=== PATIENT | female | born 1975 | race Two or more races ===

== ENCOUNTER 2020-02-26 11:55 | Emergency (ER) | payer OTHER, MEDICAID ==
[~2020-02-26] VITALS: Ht 160 cm; Wt 54.4 kg
[2020-02-26] MEDS ORDERED: SODIUM CHLORIDE 0.9% 1,000 ML IV ONE (12:45)
[2020-02-26 17:47] LABS: Basophils # (auto) 0.1 10 ^3/uL (0-0.2); Eosinophils # (auto) 0 10 ^3/uL (0-0.8); Lymphocytes # (auto) 1.6 10 ^3/uL (0.4-5.4); Lymphocytes % (auto) 8.1 % (10.0-50.0); Neutrophils # (auto) 17.2 10 ^3/uL (1.6-8.6); Nucleated Red Blood Cells % 0.1 %; Red Blood Cells 4.12 10^6/uL (4.0-5.20)
[2020-02-26 17:49] LABS: Basophils % (auto) 0.5 % (0.0-2.0); Hematocrit 38.6 % (36.0-46.0); Hemoglobin 13.6 g/dL (12.2-16.2); Mean Corpuscular Hgb Conc. 35.2 g/dL (32.0-36.0); Mean Corpuscular Volume 93.5 fL (80.0-100.0); Monocytes # (auto) 1.3 10 ^3/uL (0-1.3); Monocytes % (auto) 6.4 % (0.0-12.0); Red Cell Distribution Width 14.2 % (11.8-14.3); White Blood Cell 20.2 10^3/uL (4.4-10.8)
[2020-02-26 17:56] LABS: Alanine Aminotransferase 46 U/L (13-56); Albumin 3.8 g/dL (3.4-5.0); Anion Gap 17 (5-15); Aspartate Aminotransferase 21 U/L (15-37); BUN/Creatinine Ratio 23.5; Blood Urea Nitrogen 46 mg/dL (7-18); Carbon Dioxide 21 mmol/L (21-32); Chloride 87 mmol/L (98-107); GFR African American 36 mL/min; GFR Non-African American 30 mL/min; Glucose 255 mg/dL (74-106); Potassium 4.5 mmol/L (3.5-5.1); Sodium 125 mmol/L (136-145)
[2020-02-26 18:00] LABS: Alkaline Phosphatase 245 U/L (45-117); Bilirubin, Total 0.4 mg/dL (0.2-1.0); Total Protein 8.1 g/dL (6.4-8.2)
[2020-02-26] MEDS ORDERED: InsuLIN R (HUMAN) 100 UNITS in SODIUM CHL 0.9% 99 ML IV SCH (20:30)
[2020-02-26] MEDS: D5W/SOD CHL 0.45%/KCL 20MEQ 1,000 ML IV SCH (20:30)
[2020-02-26] MEDS: SODIUM CHLORIDE 0.9% 1,000 ML IV SCH ×2 (20:30→22:30)
[2020-02-26] MEDS ORDERED: INSULIN LANTUS (GLARGINE) 1 /0.01ml (100units/ml) SC ONE (20:30)
[2020-02-26] MEDS ORDERED: DEXTROSE (50%) 50ML SYRG IV PRN (20:30)
[2020-02-26] MEDS: ACCU-CHEK COMFORT CURVE STRIP VI SCH (21:00)
[2020-02-26] MEDS ORDERED: InsuLIN REG 1unit/0.01ml Soln (100units/ml) IV ONE (22:15)
[2020-02-26 22:20] LABS: BUN/Creatinine Ratio 29.1; Calcium 7.8 mg/dL (8.5-10.1); Potassium 3.9 mmol/L (3.5-5.1)
[2020-02-27] MEDS: ACCU-CHEK COMFORT CURVE STRIP VI SCH ×3 (02:00→04:26)
[2020-02-27] MEDS: D5W/SOD CHL 0.45%/KCL 20MEQ 1,000 ML IV SCH (02:23)
[2020-02-27 02:57] LABS: Urine Bacteria NONE SEEN /hpf (None Seen); Urine Blood Negative /uL (Negative); Urine Hyaline Cast MOD /lpf (0 - 2); Urine Mucus FEW (None Seen); Urine Specific Gravity 1.016 (1.001-1.035); Urine WBC 4 /hpf (0 - 5)
[2020-02-27 03:36] LABS: Calcium 7.8 mg/dL (8.5-10.1); Potassium 3.7 mmol/L (3.5-5.1)
[2020-02-27 03:38] LABS: BUN/Creatinine Ratio 32.2
[2020-02-27 04:00] VITALS: BP 122/75
[2020-12-22] MEDS ORDERED: NIC21P TOP (09:59)
[2020-12-22] MEDS ORDERED: INSLANTI SC (09:59)
== END 2020-02-27 06:15 | disposition home or self-care (01) ==
LOC: ER 11:55 → EDBD 11:55 → ER 02-27 06:15
DX: E11.10 Type 2 diabetes mellitus with ketoacidosis without coma (principal); D72.829 Elevated white blood cell count, unspecified; F17.210 Nicotine dependence, cigarettes, uncomplicated; N39.0 Urinary tract infection, site not specified; R07.9 Chest pain, unspecified; Z20.828 Contact with and (suspected) exposure to other viral communicable diseases
CPT/HCPCS: 36415; 71045; 80048; 80053; 81001; 82010; 82962; 83735; 84484; 85025; 87426; 93005; 96361; 96374; 99285; J1815; J7030; J7060

== ENCOUNTER 2020-07-14 11:43 | Inpatient (IN) | payer MEDICAID, OTHER ==
[~2020-07-14] VITALS: Ht 162.6 cm; Wt 51.1 kg
[2020-07-14 12:28] LABS: Urine Bacteria FEW /hpf (None Seen); Urine Blood TRACE /uL (Negative); Urine Budding Yeast OCCASIONAL /hpf (None Seen); Urine Mucus FEW (None Seen); Urine Specific Gravity 1.015 (1.001-1.035); Urine WBC 1 /hpf (0 - 5)
[2020-07-14 12:57] LABS: Albumin 3.6 g/dL (3.4-5.0); Anion Gap 20 (5-15); Blood Urea Nitrogen 31 mg/dL (7-18); Calcium 7.9 mg/dL (8.5-10.1); Chloride 104 mmol/L (98-107); Potassium 4.9 mmol/L (3.5-5.1); Sodium 133 mmol/L (136-145)
[2020-07-14 13:03] LABS: Alanine Aminotransferase 28 U/L (13-56); Alkaline Phosphatase 221 U/L (45-117); Aspartate Aminotransferase 19 U/L (15-37); BUN/Creatinine Ratio 23.8; Bilirubin, Total 0.3 mg/dL (0.2-1.0); GFR African American 57 mL/min; GFR Non-African American 47 mL/min; Total Protein 7.9 g/dL (6.4-8.2)
[2020-07-14 13:09] LABS: Carbon Dioxide 9 mmol/L (21-32); Glucose 471 mg/dL (74-106)
[2020-07-14] MEDS ORDERED: DEXTROSE (50%) 50ML SYRG IV PRN (13:45)
[2020-07-14] MEDS ORDERED: SODIUM CHLORIDE 0.9% 1,000 ML IVB ONE (13:45)
[2020-07-14] MEDS ORDERED: SODIUM BICARBONATE 8.4 % INJ 50ML VIAL IV ONE ×2 (13:45→14:30)
[2020-07-14] MEDS ORDERED: PROMETHAZINE HCL 25 MG/ML 1ML ONE (14:34)
[2020-07-14] MEDS ORDERED: PROMETHAZINE HCL 25 MG/ML 1ML IV ONE (14:45)
[2020-07-14] MEDS: InsuLIN R (HUMAN) 100 UNITS in SODIUM CHL 0.9% 99 ML IV SCH (15:00)
[2020-07-14] MEDS: ACCU-CHEK COMFORT CURVE STRIP VI SCH ×6 (15:06→22:32)
[2020-07-14] MEDS: SODIUM CHLORIDE 0.9% 1,000 ML IV SCH ×2 (15:15→15:45)
[2020-07-14 17:00] LABS: Basophils # (auto) 0 10 ^3/uL (0-0.2); Basophils % (auto) 0.2 % (0.0-2.0); Eosinophils # (auto) 0 10 ^3/uL (0-0.8); Hematocrit 35.5 % (36.0-46.0); Hemoglobin 11.9 g/dL (12.2-16.2); Lymphocytes # (auto) 1.2 10 ^3/uL (0.4-5.4); Lymphocytes % (auto) 5.8 % (10.0-50.0); Mean Corpuscular Hemoglobin 30.4 pg (28.0-32.0); Mean Corpuscular Hgb Conc. 33.5 g/dL (32.0-36.0); Mean Corpuscular Volume 90.6 fL (80.0-100.0); Monocytes # (auto) 0.6 10 ^3/uL (0-1.3); Monocytes % (auto) 2.8 % (0.0-12.0); Neutrophils # (auto) 18.7 10 ^3/uL (1.6-8.6); Neutrophils % (auto) 91.2 % (37.0-80.0); Platelet Count (auto) 430 10^3/uL (140-450); Red Blood Cells 3.91 10^6/uL (4.0-5.20); Red Cell Distribution Width 14.9 % (11.8-14.3); White Blood Cell 20.5 10^3/uL (4.4-10.8)
[2020-07-14] MEDS ORDERED: ONDANSETRON HCL 4 MG/2 ML VIAL IV PRN (17:00)
[2020-07-14] MEDS ORDERED: MORPHINE SULF INJ 2 MG/ML SYRINGE 1ML IV PRN (17:00)
[2020-07-14] MEDS ORDERED: NITROGLYCERIN 0.4 MG SL TAB SL PRN (17:00)
[2020-07-14] MEDS: LACTATED RINGER'S 1,000 ML IV SCH ×2 (17:05→23:40)
[2020-07-14 17:15] LABS: INR 0.98 (0.9-1.15); Partial Thromboplastin Time 23.4 sec (23.0-31.2)
[2020-07-14] MEDS ORDERED: SODIUM CHLORIDE 0.9% 1,000 ML IV SCH ×2 (17:45→19:45)
[2020-07-14] MEDS: INSULIN LANTUS (GLARGINE) 1 /0.01ml (100units/ml) SC SCH (18:13)
[2020-07-14 21:48] LABS: BUN/Creatinine Ratio 26.3; Potassium 3.6 mmol/L (3.5-5.1)
[2020-07-14] MEDS ORDERED: D5W/SOD CHL 0.45% 1,000 ML IV ONE (22:15)
[2020-07-15] MEDS: ACCU-CHEK COMFORT CURVE STRIP VI SCH ×11 (00:12→21:54)
[2020-07-15] MEDS: LACTATED RINGER'S 1,000 ML IV SCH ×2 (06:20→13:18)
[2020-07-15 06:55] LABS: Hematocrit 40.1 % (36.0-46.0); Hemoglobin 13.7 g/dL (12.2-16.2); Mean Corpuscular Hgb Conc. 34.2 g/dL (32.0-36.0); Mean Corpuscular Volume 90.6 fL (80.0-100.0); Red Blood Cells 4.43 10^6/uL (4.0-5.20); Red Cell Distribution Width 15.2 % (11.8-14.3); White Blood Cell 26.5 10^3/uL (4.4-10.8)
[2020-07-15 07:05] LABS: BUN/Creatinine Ratio 20.5; Calcium 8.7 mg/dL (8.5-10.1); Magnesium 2.1 mg/dL (1.6-2.6); Potassium 3.5 mmol/L (3.5-5.1)
[2020-07-15 07:10] LABS: Basophils % (manual) 0 (0.0-2.0); Blast Cells 0; Eosinophils % (manual) 0 (0-7); Metamyelocytes % 0; Myelocytes % 0; Promyelocytes % 0; Reactive Lymphocytes 0
[2020-07-15 07:56] LABS: Band Neutrophils % (manual) 3; Lymphocytes % (manual) 7 (10.0-50.0); Monocytes % (manual) 4 (0-12)
[2020-07-15 07:57] LABS: Platelet Count (auto) 433 10^3/uL (140-450)
[2020-07-15] MEDS: InsuLIN R (HUMAN) 100 UNITS in SODIUM CHL 0.9% 99 ML IV SCH (10:55)
[2020-07-15] MEDS ORDERED: PROMETHAZINE HCL 25 MG/ML 1ML IV ONE (13:15)
[2020-07-15] MEDS: INSULIN LANTUS (GLARGINE) 1 /0.01ml (100units/ml) SC SCH (13:17)
[2020-07-15] MEDS ORDERED: cefTRIAXone 1GM/50ML D5W 50 ML IV ONE (13:30)
[2020-07-15] MEDS ORDERED: DEXTROSE (50%) 50ML SYRG IV PRN (13:45)
[2020-07-15] MEDS: InsuLIN REG 1unit/0.01ml Soln (100units/ml) SC SCH ×2 (17:58→21:54)
[2020-07-15 22:00] VITALS: BP 138/85
[2020-07-15 22:34] VITALS: BP 138/85
[2020-07-15] MEDS ORDERED: DIAZ10TA3 PO (23:31)
[2020-07-15] MEDS ORDERED: INSR100KIT IV (23:31)
[2020-07-15] MEDS ORDERED: INSLANTI SC (23:31)
[2020-07-16] VITALS (7 sets, daily range): BP systolic 143–165; BP diastolic 81–96
[2020-07-16] MEDS: PROMETHAZINE HCL 25 MG/ML 1ML IV PRN ×3 (02:01→18:40)
[2020-07-16] MEDS: LACTATED RINGER'S 1,000 ML IV SCH ×4 (02:15→23:20)
[2020-07-16] MEDS: ACCU-CHEK COMFORT CURVE STRIP VI SCH ×4 (06:35→22:11)
[2020-07-16] MEDS: InsuLIN REG 1unit/0.01ml Soln (100units/ml) SC SCH ×4 (06:37→22:00)
[2020-07-16 08:15] LABS: Basophils # (auto) 0.1 10 ^3/uL (0-0.2); Basophils % (auto) 0.6 % (0.0-2.0); Eosinophils # (auto) 0 10 ^3/uL (0-0.8); Eosinophils % (auto) 0.1 % (0.0-7.0); Hematocrit 34.4 % (36.0-46.0); Hemoglobin 12.1 g/dL (12.2-16.2); Lymphocytes # (auto) 1.8 10 ^3/uL (0.4-5.4); Lymphocytes % (auto) 15.4 % (10.0-50.0); Mean Corpuscular Hemoglobin 31.2 pg (28.0-32.0); Mean Corpuscular Hgb Conc. 35.2 g/dL (32.0-36.0); Mean Corpuscular Volume 88.7 fL (80.0-100.0); Monocytes # (auto) 0.7 10 ^3/uL (0-1.3); Monocytes % (auto) 5.8 % (0.0-12.0); Neutrophils % (auto) 78.1 % (37.0-80.0); Platelet Count (auto) 358 10^3/uL (140-450); Red Blood Cells 3.88 10^6/uL (4.0-5.20); Red Cell Distribution Width 15.4 % (11.8-14.3); White Blood Cell 11.5 10^3/uL (4.4-10.8)
[2020-07-16 08:26] LABS: BUN/Creatinine Ratio 18.4; Calcium 8.3 mg/dL (8.5-10.1)
[2020-07-16 08:34] LABS: Potassium 2.8 mmol/L (3.5-5.1)
[2020-07-16] MEDS ORDERED: POTASSIUM CHL 20 Meq TABLET PO ONE (09:00)
[2020-07-16] MEDS: cefTRIAXone 1GM/50ML D5W 50 ML IV SCH (09:25)
[2020-07-16] MEDS: INSULIN LANTUS (GLARGINE) 1 /0.01ml (100units/ml) SC SCH (11:17)
[2020-07-16 16:54] LABS: Alcohol, Urine < 3.0 mg/dL (0-10); Amphetamine Screen, Urine NEGATIVE (NEGATIVE); Barbiturate Scree,Urine NEGATIVE (NEGATIVE); Benzodiazephine Screen, Urine NEGATIVE (NEGATIVE); Cannabinoid Screen, Urine NEGATIVE (NEGATIVE); Cocaine Screen, Urine NEGATIVE (NEGATIVE); Opiate Scree,Urine NEGATIVE (NEGATIVE); Phencyclidine Screen, Urine NEGATIVE (NEGATIVE)
[2020-07-16] MEDS: POTASSIUM EFFERVESENT TAB 25 MEQ GT SCH (22:11)
[2020-07-17] MEDS: MORPHINE SULF INJ 2 MG/ML SYRINGE 1ML IV PRN ×2 (03:53→12:37)
[2020-07-17 05:08] VITALS: BP 161/95
[2020-07-17] MEDS: LACTATED RINGER'S 1,000 ML IV SCH ×2 (05:15→11:40)
[2020-07-17] MEDS: PROMETHAZINE HCL 25 MG/ML 1ML IV PRN ×2 (05:32→12:37)
[2020-07-17] MEDS: ACCU-CHEK COMFORT CURVE STRIP VI SCH ×3 (06:41→16:59)
[2020-07-17 06:42] LABS: Basophils # (auto) 0 10 ^3/uL (0-0.2); Basophils % (auto) 0.5 % (0.0-2.0); Eosinophils # (auto) 0 10 ^3/uL (0-0.8); Eosinophils % (auto) 0.2 % (0.0-7.0); Hematocrit 37.9 % (36.0-46.0); Hemoglobin 12.9 g/dL (12.2-16.2); Lymphocytes # (auto) 2.1 10 ^3/uL (0.4-5.4); Mean Corpuscular Hemoglobin 30.7 pg (28.0-32.0); Mean Corpuscular Hgb Conc. 34.1 g/dL (32.0-36.0); Mean Corpuscular Volume 90.2 fL (80.0-100.0); Monocytes # (auto) 0.6 10 ^3/uL (0-1.3); Monocytes % (auto) 9.3 % (0.0-12.0); Neutrophils # (auto) 4.2 10 ^3/uL (1.6-8.6); Nucleated Red Blood Cells % 0.1 %; Platelet Count (auto) 334 10^3/uL (140-450); Red Blood Cells 4.21 10^6/uL (4.0-5.20); Red Cell Distribution Width 15.3 % (11.8-14.3); White Blood Cell 6.9 10^3/uL (4.4-10.8)
[2020-07-17] MEDS: InsuLIN REG 1unit/0.01ml Soln (100units/ml) SC SCH ×3 (06:43→17:03)
[2020-07-17 07:11] LABS: BUN/Creatinine Ratio 17.8; Calcium 8.4 mg/dL (8.5-10.1)
[2020-07-17 09:00] VITALS: BP 167/82
[2020-07-17 09:08] VITALS: BP 161/95
[2020-07-17] MEDS: cefTRIAXone 1GM/50ML D5W 50 ML IV SCH (09:44)
[2020-07-17] MEDS: POTASSIUM EFFERVESENT TAB 25 MEQ GT SCH (09:44)
[2020-07-17] MEDS: INSULIN LANTUS (GLARGINE) 1 /0.01ml (100units/ml) SC SCH (09:53)
[2020-07-17 16:35] VITALS: BP 118/83
== END 2020-07-17 18:00 | disposition home or self-care (01) | DRG 720 ==
LOC: EDBD 11:43 → ER 11:43 → TELE 16:53 → TELE-CENTR 07-15 20:20
PROVIDERS: ADMIT Nurse Practitioner Acute Care; ATTEND Family Medicine
PROC: 05HB33Z Insertion of Infusion Device into Right Basilic Vein, Percutaneous Approach (ICD-10-PCS; principal; 2020-07-14)
PROC: B54MZZA Ultrasonography of Right Upper Extremity Veins, Guidance (ICD-10-PCS; 2020-07-14)
DX: A41.9 Sepsis, unspecified organism (principal); N17.0 Acute kidney failure with tubular necrosis; G93.41 Metabolic encephalopathy; E10.10 Type 1 diabetes mellitus with ketoacidosis without coma; E87.6 Hypokalemia; F31.9 Bipolar disorder, unspecified; F17.210 Nicotine dependence, cigarettes, uncomplicated; Z20.822 Contact with and (suspected) exposure to COVID-19; Z82.49 Family history of ischemic heart disease and other diseases of the circulatory system; Z83.3 Family history of diabetes mellitus; Z91.19 Patient's noncompliance with other medical treatment and regimen; Z79.4 Long term (current) use of insulin; Z90.49 Acquired absence of other specified parts of digestive tract
CPT/HCPCS: 36415; 36600; 71045; 80048; 80053; 80307; 81001; 81025; 82805; 82962; 83036; 83735; 84100; 84484; 85007; 85025; 85027; 85610; 85730; 87040; 87081; 87426; 93005; 96361; 96374; 96375; G0378; J0696; J1815; J2405

== ENCOUNTER 2020-12-09 09:28 | Inpatient (IN) | payer MEDICAID, OTHER ==
[~2020-12-09] VITALS: Ht 160 cm; Wt 64.9 kg
[2020-12-09] VITALS (7 sets, daily range): BP systolic 97–130; BP diastolic 54–60
[~2020-12-09 09:28] MED LIST: DIAZ10TA3 PO; INSLANTI SC; INSR100KIT IV
[2020-12-09 10:27] LABS: Albumin 3.5 g/dL (3.4-5.0); Anion Gap 33 (5-15); Blood Urea Nitrogen 31 mg/dL (7-18); Calcium 8.9 mg/dL (8.5-10.1); Chloride 86 mmol/L (98-107); Potassium 5.2 mmol/L (3.5-5.1); Sodium 123 mmol/L (136-145)
[2020-12-09 10:30] LABS: Alanine Aminotransferase 44 U/L (13-56); Alkaline Phosphatase 213 U/L (45-117); Aspartate Aminotransferase 48 U/L (15-37); Bilirubin, Total 0.4 mg/dL (0.2-1.0); GFR African American 44 mL/min; GFR Non-African American 37 mL/min; Total Protein 7.6 g/dL (6.4-8.2)
[2020-12-09 10:32] LABS: BUN/Creatinine Ratio 19.1; Carbon Dioxide 4 mmol/L (21-32); Glucose > 500 mg/dL (74-106)
[2020-12-09] MEDS ORDERED: ETOMIDATE (2MG/ML) 20ML VIAL IV ONE ×2 (10:49→12:15)
[2020-12-09] MEDS ORDERED: MIDAZOLAM DRIP 50 mg/50mL 50 ML IV ONE (10:49)
[2020-12-09] MEDS ORDERED: ROCURONIUM 10MG/ML 10ML VIAL IV ONE ×2 (10:50→12:15)
[2020-12-09] MEDS ORDERED: fentaNYL Drip 2500mCg/250mlNS 250 ML IV ONE (10:52)
[2020-12-09 11:15] LABS: Eosinophils # (auto) 0 10 ^3/uL (0-0.8); Hemoglobin 12.4 g/dL (12.2-16.2)
[2020-12-09 11:17] LABS: Basophils # (auto) 0.4 10 ^3/uL (0-0.2); Basophils % (auto) 2.1 % (0.0-2.0); Eosinophils % (auto) 0.2 % (0.0-7.0); Hematocrit 45.1 % (36.0-46.0); Lymphocytes % (auto) 15.8 % (10.0-50.0); Mean Corpuscular Hemoglobin 29.9 pg (28.0-32.0); Mean Corpuscular Hgb Conc. 27.4 g/dL (32.0-36.0); Mean Corpuscular Volume 109.3 fL (80.0-100.0); Monocytes # (auto) 0.8 10 ^3/uL (0-1.3); Monocytes % (auto) 4.1 % (0.0-12.0); Neutrophils # (auto) 14.9 10 ^3/uL (1.6-8.6); Neutrophils % (auto) 77.8 % (37.0-80.0); Red Blood Cells 4.13 10^6/uL (4.0-5.20); Red Cell Distribution Width 16.8 % (11.8-14.3); White Blood Cell 19.2 10^3/uL (4.4-10.8)
[2020-12-09 12:32] LABS: Urine Bacteria NONE SEEN /hpf (None Seen); Urine Blood TRACE /uL (Negative); Urine Mucus FEW (None Seen); Urine WBC 3 /hpf (0 - 5)
[2020-12-09] MEDS: MIDAZOLAM DRIP 50 mg/50mL 50 ML IV SCH ×4 (12:32→23:04)
[2020-12-09] MEDS: fentaNYL Drip 2500mCg/250mlNS 250 ML IV SCH (12:35)
[2020-12-09] MEDS ORDERED: SODIUM CHLORIDE 0.9% 1,000 ML IV SCH ×3 (12:45→18:45)
[2020-12-09] MEDS ORDERED: DEXTROSE (50%) 50ML SYRG IV PRN (12:45)
[2020-12-09] MEDS ORDERED: InsuLIN R (HUMAN) 100 UNITS in SODIUM CHL 0.9% 99 ML IV SCH (12:45)
[2020-12-09] MEDS ORDERED: SODIUM BICARBONATE 50ML VIAL 150 ML in SOD CHL 0.45% 1,000 ML IV ONE (12:45)
[2020-12-09] MEDS ORDERED: INSULIN LANTUS (GLARGINE) 1 /0.01ml (100units/ml) SC ONE (12:45)
[2020-12-09] MEDS: ACCU-CHEK COMFORT CURVE STRIP VI SCH ×7 (13:30→22:43)
[2020-12-09 13:44] LABS: Eosinophils # (auto) 0 10 ^3/uL (0-0.8); Lymphocytes % (auto) 15.8 % (10.0-50.0); Monocytes # (auto) 0.2 10 ^3/uL (0-1.3)
[2020-12-09 13:45] LABS: Basophils # (auto) 0.1 10 ^3/uL (0-0.2); Basophils % (auto) 0.4 % (0.0-2.0); Eosinophils % (auto) 0.2 % (0.0-7.0); Hematocrit 43.9 % (36.0-46.0); Hemoglobin 11.7 g/dL (12.2-16.2); Lymphocytes # (auto) 2.5 10 ^3/uL (0.4-5.4); Mean Corpuscular Hemoglobin 29.6 pg (28.0-32.0); Mean Corpuscular Hgb Conc. 26.8 g/dL (32.0-36.0); Mean Corpuscular Volume 110.5 fL (80.0-100.0); Monocytes % (auto) 1.4 % (0.0-12.0); Neutrophils # (auto) 13.1 10 ^3/uL (1.6-8.6); Neutrophils % (auto) 82.2 % (37.0-80.0); Nucleated Red Blood Cells % 0.2 %; Red Blood Cells 3.97 10^6/uL (4.0-5.20); Red Cell Distribution Width 16.4 % (11.8-14.3)
[2020-12-09] MEDS ORDERED: cefTRIAXone 1GM/50ML D5W 50 ML IV ONE (13:45)
[2020-12-09] MEDS ORDERED: ALUM & MAG HYDROX-SIMETH LIQ(MAALOX) 30 ML PO PRN (13:45)
[2020-12-09] MEDS ORDERED: MORPHINE SULFATE INJECTION 2 MG/ML SYRG IV PRN ×3 (13:45)
[2020-12-09] MEDS ORDERED: LORazepam 0.5 MG TAB PO PRN (13:45)
[2020-12-09] MEDS ORDERED: ONDANSETRON HCL 4 MG/2 ML VIAL IV PRN (13:45)
[2020-12-09] MEDS ORDERED: SODIUM CHLORIDE 0.9% 2,000 ML IV ONE (13:45)
[2020-12-09] MEDS ORDERED: LACTATED RINGER'S 2,000 ML IV ONE (13:45)
[2020-12-09] MEDS ORDERED: NITROGLYCERIN 0.4 MG SL TAB SL PRN ×2 (13:45)
[2020-12-09] MEDS ORDERED: CLINDAMYCIN 300MG IV 50 ML IV ONE (13:45)
[2020-12-09] MEDS ORDERED: DOCUSATE SOD 100 MG CAP PO PRN (13:45)
[2020-12-09] MEDS ORDERED: HYDROcodone-ACET 5/325MG TAB PO PRN (13:45)
[2020-12-09] MEDS ORDERED: D5W/SOD CHLO 0.9% 1,000 ML IV PRN (14:00)
[2020-12-09] MEDS ORDERED: SOD CHL 0.9%/ KCL 20MEQ 1,000 ML IV PRN (14:00)
[2020-12-09 14:03] LABS: Magnesium 3.1 mg/dL (1.6-2.6)
[2020-12-09] MEDS: FAMOTIDINE (10MG/ML) 2ML VL IV SCH (14:10)
[2020-12-09 14:16] LABS: Amphetamine Screen, Urine NEGATIVE (NEGATIVE); Barbiturate Scree,Urine NEGATIVE (NEGATIVE); Benzodiazephine Screen, Urine NEGATIVE (NEGATIVE); Cannabinoid Screen, Urine NEGATIVE (NEGATIVE); Cocaine Screen, Urine NEGATIVE (NEGATIVE); Opiate Scree,Urine NEGATIVE (NEGATIVE); Phencyclidine Screen, Urine NEGATIVE (NEGATIVE)
[2020-12-09 14:22] LABS: Alcohol, Urine < 3.0 mg/dL (0-10)
[2020-12-09 14:48] LABS: Potassium 6.9 mmol/L (3.5-5.1)
[2020-12-09 14:49] LABS: BUN/Creatinine Ratio 18.4
[2020-12-09 14:50] LABS: Phosphorus 11.3 mg/dL (2.5-4.90)
[2020-12-09 15:43] LABS: Calcium 7.4 mg/dL (8.5-10.1)
[2020-12-09 15:51] LABS: BUN/Creatinine Ratio 18.6
[2020-12-09 16:02] LABS: Cholesterol 155 mg/dL (< 200); HDL Cholesterol 50 mg/dL (40-59); LDL Cholesterol 59 mg/dL (< 100); Triglycerides 241 mg/dL (< 150)
[2020-12-09 16:08] LABS: Potassium 6.8 mmol/L (3.5-5.1)
[2020-12-09] MEDS: InsuLIN R (HUMAN) 100 UNITS in SODIUM CHL 0.9% 99 ML IV SCH ×2 (16:30→21:07)
[2020-12-09] MEDS ORDERED: InsuLIN REG 1unit/0.01ml Soln (100units/ml) IV ONE (16:30)
[2020-12-09] MEDS ORDERED: DEXTROSE (50%) 50ML SYRG IV ONE (16:30)
[2020-12-09] MEDS ORDERED: SODIUM BICARBONATE 8.4% INJ 50ML SYRINGE IV ONE (16:30)
[2020-12-09] MEDS ORDERED: FUROSEMIDE 40 MG/4 ML VIAL IV ONE (16:30)
[2020-12-09] MEDS ORDERED: CALCIUM CHL 100MG/ML 1,000 MG in D5W 5% 100 ML IV ONE (16:30)
[2020-12-09] MEDS ORDERED: SODIUM ZIRCONIUM CYCL 10 GM PAK PO ONE (16:30)
[2020-12-09] MEDS ORDERED: ALBUTEROL SULF 2.5 MG/0.5ML(0.5%) NEB SOLN NEB ONE (16:30)
[2020-12-09] MEDS: SODIUM CHLORIDE 0.9% 1,000 ML IV SCH ×2 (17:39→22:06)
[2020-12-09 19:25] LABS: Anion Gap 25 (5-15); Blood Urea Nitrogen 31 mg/dL (7-18); Calcium 7.8 mg/dL (8.5-10.1); Chloride 103 mmol/L (98-107); Potassium 3.2 mmol/L (3.5-5.1); Sodium 136 mmol/L (136-145)
[2020-12-09 19:28] LABS: BUN/Creatinine Ratio 19.6; GFR African American 46 mL/min; GFR Non-African American 38 mL/min
[2020-12-09 19:38] LABS: Glucose 834 mg/dL (74-106)
[2020-12-09 19:39] LABS: Carbon Dioxide 8 mmol/L (21-32)
[2020-12-09] MEDS: PHENYLEPHRINE IV 250 ML IV SCH (20:42)
[2020-12-09 21:35] LABS: BUN/Creatinine Ratio 17.9; Calcium 7.7 mg/dL (8.5-10.1)
[2020-12-09 21:47] LABS: Potassium 2.9 mmol/L (3.5-5.1)
[2020-12-09] MEDS: ATORVASTATIN 20 MG TAB PO SCH (21:48)
[2020-12-09] MEDS: CLINDAMYCIN 600MG IV 50 ML IV SCH (21:48)
[2020-12-09] MEDS ORDERED: SODIUM ZIRCONIUM CYCL 10 GM PAK PO SCH (22:00)
[2020-12-09] MEDS: POTASSIUM CHL 20MEQ/100ML 100 ML IV SCH (22:06)
[2020-12-10] VITALS (12 sets, daily range): BP systolic 79–135; BP diastolic 34–71
[2020-12-10] MEDS: POTASSIUM CHL 20MEQ/100ML 100 ML IV SCH
[2020-12-10] MEDS: SODIUM CHLORIDE 0.9% 1,000 ML IV SCH ×5 (00:04→20:33)
[2020-12-10] MEDS: ACCU-CHEK COMFORT CURVE STRIP VI SCH ×9 (00:09→19:10)
[2020-12-10 01:37] LABS: Calcium 7.2 mg/dL (8.5-10.1); Potassium 3.6 mmol/L (3.5-5.1)
[2020-12-10 01:39] LABS: BUN/Creatinine Ratio 20.2
[2020-12-10 03:01] LABS: BUN/Creatinine Ratio 21.6; Calcium 6.8 mg/dL (8.5-10.1); Potassium 4.1 mmol/L (3.5-5.1)
[2020-12-10] MEDS: MIDAZOLAM DRIP 50 mg/50mL 50 ML IV SCH ×7 (03:38→21:03)
[2020-12-10] MEDS: fentaNYL Drip 2500mCg/250mlNS 250 ML IV SCH ×2 (04:12→23:09)
[2020-12-10] MEDS: PHENYLEPHRINE IV 250 ML IV SCH ×3 (04:50→20:29)
[2020-12-10 05:17] LABS: Basophils # (auto) 0.1 10 ^3/uL (0-0.2); Basophils % (auto) 1.2 % (0.0-2.0); Eosinophils # (auto) 0 10 ^3/uL (0-0.8); Eosinophils % (auto) 0.1 % (0.0-7.0); Hematocrit 30.2 % (36.0-46.0); Hemoglobin 10.1 g/dL (12.2-16.2); Lymphocytes # (auto) 1.9 10 ^3/uL (0.4-5.4); Lymphocytes % (auto) 15.9 % (10.0-50.0); Mean Corpuscular Hemoglobin 29.6 pg (28.0-32.0); Mean Corpuscular Hgb Conc. 33.4 g/dL (32.0-36.0); Mean Corpuscular Volume 88.6 fL (80.0-100.0); Monocytes # (auto) 1.1 10 ^3/uL (0-1.3); Monocytes % (auto) 9.3 % (0.0-12.0); Neutrophils # (auto) 8.5 10 ^3/uL (1.6-8.6); Neutrophils % (auto) 73.5 % (37.0-80.0); Nucleated Red Blood Cells % 0.1 %; Red Blood Cells 3.41 10^6/uL (4.0-5.20); Red Cell Distribution Width 15.4 % (11.8-14.3); White Blood Cell 11.6 10^3/uL (4.4-10.8)
[2020-12-10 05:33] LABS: INR 1.04 (0.9-1.15); Partial Thromboplastin Time < 20.0 sec (23.6-33.0)
[2020-12-10 06:04] LABS: Albumin 2.5 g/dL (3.4-5.0); Anion Gap 5 (5-15); Blood Urea Nitrogen 26 mg/dL (7-18); Calcium 6.8 mg/dL (8.5-10.1); Carbon Dioxide 23 mmol/L (21-32); Chloride 120 mmol/L (98-107); Glucose 81 mg/dL (74-106); Magnesium 1.6 mg/dL (1.6-2.6); Potassium 3.8 mmol/L (3.5-5.1); Sodium 148 mmol/L (136-145)
[2020-12-10 06:10] LABS: Alanine Aminotransferase 35 U/L (13-56); Alkaline Phosphatase 114 U/L (45-117); Aspartate Aminotransferase 49 U/L (15-37); BUN/Creatinine Ratio 24.8; Bilirubin, Total 0.2 mg/dL (0.2-1.0); GFR African American 73 mL/min; GFR Non-African American 61 mL/min; Phosphorus 2.7 mg/dL (2.5-4.90); Total Protein 5.2 g/dL (6.4-8.2)
[2020-12-10] MEDS: CLINDAMYCIN 600MG IV 50 ML IV SCH ×3 (06:11→21:15)
[2020-12-10] MEDS ORDERED: DEXTROSE (50%) 50ML SYRG IV PRN ×2 (07:45→10:15)
[2020-12-10] MEDS: D5W/SOD CHL 0.45% 1,000 ML IV SCH ×2 (07:52→22:12)
[2020-12-10] MEDS ORDERED: InsuLIN REG 1unit/0.01ml Soln (100units/ml) SC SCH (08:00)
[2020-12-10] MEDS ORDERED: ACCU-CHEK COMFORT CURVE STRIP VI SCH (08:00)
[2020-12-10] MEDS: cefTRIAXone 1GM/50ML D5W 50 ML IV SCH (09:08)
[2020-12-10 10:21] LABS: Potassium 4.3 mmol/L (3.5-5.1)
[2020-12-10] MEDS: ASPirin 81 mg TAB PO SCH (10:28)
[2020-12-10] MEDS: FAMOTIDINE (10MG/ML) 2ML VL IV SCH ×2 (10:28→21:15)
[2020-12-10] MEDS: ENOXAPARIN SOD 40 MG/0.4 ML SYRINGE SC SCH (10:28)
[2020-12-10 10:32] LABS: BUN/Creatinine Ratio 26.6; Calcium 6.9 mg/dL (8.5-10.1)
[2020-12-10] MEDS: InsuLIN REG 1unit/0.01ml Soln (100units/ml) SC SCH ×2 (12:59→18:00)
[2020-12-10 15:23] LABS: Calcium 6.9 mg/dL (8.5-10.1)
[2020-12-10] MEDS ORDERED: LORazepam 2MG/ML-1ML VIAL ONE (16:46)
[2020-12-10] MEDS ORDERED: CALCIUM GLUC 1,000mg/50ml-NS 50 ML IV ONE (17:00)
[2020-12-10] MEDS ORDERED: MAGNESIUM SULFATE 1GM/100ML 100 ML IV ONE (17:00)
[2020-12-10] MEDS ORDERED: LORazepam 2MG/ML-1ML VIAL IV ONE (17:00)
[2020-12-10 19:10] LABS: Albumin 2.6 g/dL (3.4-5.0); Calcium 7.1 mg/dL (8.5-10.1); Magnesium 1.7 mg/dL (1.6-2.6); Potassium 3.9 mmol/L (3.5-5.1)
[2020-12-10 19:13] LABS: BUN/Creatinine Ratio 22.9; Bilirubin, Total 0.1 mg/dL (0.2-1.0); Total Protein 5.2 g/dL (6.4-8.2)
[2020-12-10 19:26] LABS: Calcium 7.2 mg/dL (8.5-10.1); Potassium 3.7 mmol/L (3.5-5.1)
[2020-12-10 19:32] LABS: BUN/Creatinine Ratio 24.4
[2020-12-10] MEDS: PROPOFOL 100 ML IV SCH (20:32)
[2020-12-10] MEDS: INSULIN LANTUS (GLARGINE) 1 /0.01ml (100units/ml) SC SCH (21:25)
[2020-12-10] MEDS: ATORVASTATIN 20 MG TAB PO SCH (22:00)
[2020-12-10 23:11] LABS: BUN/Creatinine Ratio 28.2; Calcium 7.1 mg/dL (8.5-10.1)
[2020-12-11] VITALS (12 sets, daily range): BP systolic 95–156; BP diastolic 45–88
[2020-12-11] MEDS: InsuLIN REG 1unit/0.01ml Soln (100units/ml) SC SCH ×4 (00:45→18:27)
[2020-12-11] MEDS: MIDAZOLAM DRIP 50 mg/50mL 50 ML IV SCH ×4 (00:46→10:30)
[2020-12-11] MEDS: SODIUM CHLORIDE 0.9% 1,000 ML IV SCH ×2 (00:46→05:16)
[2020-12-11] MEDS: PHENYLEPHRINE IV 250 ML IV SCH ×3 (05:17→22:30)
[2020-12-11] MEDS: ACCU-CHEK COMFORT CURVE STRIP VI SCH ×5 (05:17→23:06)
[2020-12-11] MEDS: CLINDAMYCIN 600MG IV 50 ML IV SCH ×3 (05:17→22:00)
[2020-12-11] MEDS: INSULIN LANTUS (GLARGINE) 1 /0.01ml (100units/ml) SC SCH ×2 (06:32→23:00)
[2020-12-11 07:44] LABS: Basophils # (auto) 0.1 10 ^3/uL (0-0.2); Basophils % (auto) 0.6 % (0.0-2.0); Eosinophils # (auto) 0 10 ^3/uL (0-0.8); Eosinophils % (auto) 0.2 % (0.0-7.0); Hematocrit 31.5 % (36.0-46.0); Hemoglobin 10.7 g/dL (12.2-16.2); Lymphocytes # (auto) 2.9 10 ^3/uL (0.4-5.4); Lymphocytes % (auto) 28.5 % (10.0-50.0); Mean Corpuscular Hemoglobin 30.5 pg (28.0-32.0); Mean Corpuscular Hgb Conc. 33.9 g/dL (32.0-36.0); Monocytes # (auto) 0.6 10 ^3/uL (0-1.3); Monocytes % (auto) 5.9 % (0.0-12.0); Neutrophils # (auto) 6.6 10 ^3/uL (1.6-8.6); Neutrophils % (auto) 64.8 % (37.0-80.0); Nucleated Red Blood Cells % 0.1 %; Red Cell Distribution Width 16.6 % (11.8-14.3); White Blood Cell 10.2 10^3/uL (4.4-10.8)
[2020-12-11 07:59] LABS: Alanine Aminotransferase 90 U/L (13-56); Albumin 2.1 g/dL (3.4-5.0); Anion Gap 5 (5-15); Aspartate Aminotransferase 215 U/L (15-37); BUN/Creatinine Ratio 20.8; Blood Urea Nitrogen 16 mg/dL (7-18); Calcium 6.9 mg/dL (8.5-10.1); Carbon Dioxide 23 mmol/L (21-32); Chloride 122 mmol/L (98-107); GFR African American 105 mL/min; GFR Non-African American 87 mL/min; Glucose 132 mg/dL (74-106); Sodium 150 mmol/L (136-145)
[2020-12-11 08:03] LABS: INR 1.02 (0.9-1.15)
[2020-12-11 08:04] LABS: Alkaline Phosphatase 183 U/L (45-117); Bilirubin, Total 0.2 mg/dL (0.2-1.0); Phosphorus 2.7 mg/dL (2.5-4.90); Total Protein 5.1 g/dL (6.4-8.2)
[2020-12-11] MEDS: cefTRIAXone 1GM/50ML D5W 50 ML IV SCH (08:40)
[2020-12-11] MEDS: ASPirin 81 mg TAB PO SCH (09:50)
[2020-12-11] MEDS: FAMOTIDINE (10MG/ML) 2ML VL IV SCH ×2 (10:08→22:42)
[2020-12-11] MEDS: ENOXAPARIN SOD 40 MG/0.4 ML SYRINGE SC SCH (10:09)
[2020-12-11] MEDS: D5W/SOD CHLO 0.9% 1,000 ML IV SCH (13:15)
[2020-12-11] MEDS: LORazepam 2MG/ML-1ML VIAL IV PRN ×2 (17:03→22:42)
[2020-12-11] MEDS: PROPOFOL 100 ML IV SCH (19:30)
[2020-12-11] MEDS: ATORVASTATIN 20 MG TAB PO SCH (22:00)
[2020-12-11] MEDS ORDERED: ACETAMINOPHEN 650 MG RECT SUPP PR ONE (22:15)
[2020-12-12] VITALS (13 sets, daily range): BP systolic 93–158; BP diastolic 54–90
[2020-12-12] MEDS: InsuLIN REG 1unit/0.01ml Soln (100units/ml) SC SCH ×4 (00:31→18:00)
[2020-12-12] MEDS: LORazepam 2MG/ML-1ML VIAL IV PRN ×3 (00:54→03:27)
[2020-12-12] MEDS: D5W/SOD CHLO 0.9% 1,000 ML IV SCH ×4 (00:54→20:17)
[2020-12-12 01:31] LABS: BUN/Creatinine Ratio 15.7; Potassium 3.8 mmol/L (3.5-5.1)
[2020-12-12] MEDS: MIDAZOLAM DRIP 50 mg/50mL 50 ML IV SCH ×2 (03:03→16:24)
[2020-12-12 05:07] LABS: Basophils # (auto) 0 10 ^3/uL (0-0.2); Basophils % (auto) 0.4 % (0.0-2.0); Eosinophils # (auto) 0 10 ^3/uL (0-0.8); Eosinophils % (auto) 0.2 % (0.0-7.0); Hemoglobin 10.4 g/dL (12.2-16.2); Lymphocytes # (auto) 1.8 10 ^3/uL (0.4-5.4); Lymphocytes % (auto) 28.1 % (10.0-50.0); Mean Corpuscular Hgb Conc. 33.6 g/dL (32.0-36.0); Mean Corpuscular Volume 89.3 fL (80.0-100.0); Monocytes # (auto) 0.5 10 ^3/uL (0-1.3); Monocytes % (auto) 7.6 % (0.0-12.0); Neutrophils # (auto) 4.1 10 ^3/uL (1.6-8.6); Neutrophils % (auto) 63.7 % (37.0-80.0); Nucleated Red Blood Cells % 0.1 %; Red Blood Cells 3.48 10^6/uL (4.0-5.20); Red Cell Distribution Width 16.7 % (11.8-14.3); White Blood Cell 6.4 10^3/uL (4.4-10.8)
[2020-12-12 05:29] LABS: INR 1.01 (0.9-1.15); Partial Thromboplastin Time 24.4 sec (23.6-33.0)
[2020-12-12 05:57] LABS: Potassium 3.6 mmol/L (3.5-5.1)
[2020-12-12 06:07] LABS: Albumin 1.9 g/dL (3.4-5.0); BUN/Creatinine Ratio 16.7; Bilirubin, Total 0.4 mg/dL (0.2-1.0); Magnesium 2.2 mg/dL (1.6-2.6); Total Protein 4.9 g/dL (6.4-8.2)
[2020-12-12] MEDS: ACCU-CHEK COMFORT CURVE STRIP VI SCH ×3 (06:11→18:00)
[2020-12-12] MEDS: CLINDAMYCIN 600MG IV 50 ML IV SCH ×3 (06:28→22:57)
[2020-12-12] MEDS: PHENYLEPHRINE IV 250 ML IV SCH ×3 (06:50→23:30)
[2020-12-12] MEDS: PROPOFOL 100 ML IV SCH (08:10)
[2020-12-12] MEDS: INSULIN LANTUS (GLARGINE) 1 /0.01ml (100units/ml) SC SCH (12:15)
[2020-12-12] MEDS: FAMOTIDINE (10MG/ML) 2ML VL IV SCH ×2 (12:20→22:00)
[2020-12-12] MEDS: ENOXAPARIN SOD 40 MG/0.4 ML SYRINGE SC SCH (12:28)
[2020-12-12] MEDS: ASPirin 81 mg TAB PO SCH (12:28)
[2020-12-12] MEDS: cefTRIAXone 1GM/50ML D5W 50 ML IV SCH (12:28)
[2020-12-12] MEDS ORDERED: POTASSIUM PHOSPHATE 22 MEQ in SODIUM CHL 0.9% 100 ML IV ONE (15:00)
[2020-12-12] MEDS ORDERED: CALCIUM CHL 100MG/ML 500 MG in D5W 5% 100 ML IV ONE ×2 (15:00→17:00)
[2020-12-12] MEDS ORDERED: Glucerna 1.2 Cal 1Liter BOTTLE GT SCH (15:00)
[2020-12-12] MEDS: NEUTRA-PHOS TABLET PO SCH (19:26)
[2020-12-12] MEDS: CALCIUM W/VIT D (600MG/400IU) TAB PO SCH (19:26)
[2020-12-12] MEDS: fentaNYL Drip 2500mCg/250mlNS 250 ML IV SCH ×2 (20:16→22:56)
[2020-12-12] MEDS: ATORVASTATIN 20 MG TAB PO SCH (22:58)
[2020-12-13] MEDS: ACCU-CHEK COMFORT CURVE STRIP VI SCH ×4 (00:06→18:03)
[2020-12-13] MEDS: INSULIN LANTUS (GLARGINE) 1 /0.01ml (100units/ml) SC SCH ×2 (00:08→06:38)
[2020-12-13] MEDS: D5W/SOD CHLO 0.9% 1,000 ML IV SCH ×4 (00:10→18:51)
[2020-12-13] MEDS: InsuLIN REG 1unit/0.01ml Soln (100units/ml) SC SCH ×4 (00:15→18:00)
[2020-12-13] MEDS: PHENYLEPHRINE IV 250 ML IV SCH ×3 (01:55→14:35)
[2020-12-13 03:25] VITALS: BP 87/53
[2020-12-13 05:15] LABS: Basophils # (auto) 0.1 10 ^3/uL (0-0.2); Basophils % (auto) 1.2 % (0.0-2.0); Eosinophils # (auto) 0 10 ^3/uL (0-0.8); Eosinophils % (auto) 0.7 % (0.0-7.0); Hematocrit 33.6 % (36.0-46.0); Hemoglobin 11.4 g/dL (12.2-16.2); Lymphocytes # (auto) 2.2 10 ^3/uL (0.4-5.4); Lymphocytes % (auto) 33.7 % (10.0-50.0); Mean Corpuscular Hemoglobin 30.6 pg (28.0-32.0); Mean Corpuscular Hgb Conc. 33.9 g/dL (32.0-36.0); Mean Corpuscular Volume 90.4 fL (80.0-100.0); Monocytes # (auto) 0.5 10 ^3/uL (0-1.3); Neutrophils # (auto) 3.7 10 ^3/uL (1.6-8.6); Neutrophils % (auto) 57.4 % (37.0-80.0); Nucleated Red Blood Cells % 0.1 %; Red Blood Cells 3.71 10^6/uL (4.0-5.20); Red Cell Distribution Width 16.8 % (11.8-14.3); White Blood Cell 6.5 10^3/uL (4.4-10.8)
[2020-12-13 05:31] LABS: INR 0.97 (0.9-1.15); Partial Thromboplastin Time < 20.0 sec (23.6-33.0)
[2020-12-13 05:38] LABS: Calcium 7.4 mg/dL (8.5-10.1); Potassium 3.6 mmol/L (3.5-5.1)
[2020-12-13 05:43] LABS: Albumin 1.9 g/dL (3.4-5.0); Bilirubin, Total 0.7 mg/dL (0.2-1.0); Magnesium 2.2 mg/dL (1.6-2.6); Phosphorus 3.2 mg/dL (2.5-4.90); Total Protein 5.4 g/dL (6.4-8.2)
[2020-12-13 06:01] VITALS: BP 99/57
[2020-12-13] MEDS: CLINDAMYCIN 600MG IV 50 ML IV SCH ×3 (06:10→22:30)
[2020-12-13] MEDS: NEUTRA-PHOS TABLET PO SCH ×3 (08:00→18:00)
[2020-12-13] MEDS: CALCIUM W/VIT D (600MG/400IU) TAB PO SCH ×2 (08:00→18:00)
[2020-12-13] MEDS: ENOXAPARIN SOD 40 MG/0.4 ML SYRINGE SC SCH (08:51)
[2020-12-13] MEDS: cefTRIAXone 1GM/50ML D5W 50 ML IV SCH (08:51)
[2020-12-13] MEDS: ASPirin 81 mg TAB PO SCH (10:00)
[2020-12-13] MEDS ORDERED: ALBUTEROL SULF 2.5 MG/0.5ML(0.5%) NEB SOLN ONE (10:43)
[2020-12-13] MEDS ORDERED: IPRATROPIUM BROM 0.5 MG/2.5ML INH SOL ONE (10:44)
[2020-12-13] MEDS ORDERED: EPINEPHrine HCL 0.5 ML NEB ONE (10:44)
[2020-12-13] MEDS ORDERED: EPINEPHrine HCL 0.5 ML NEB NEB ONE (10:45)
[2020-12-13] MEDS ORDERED: IPRATROPIUM BROM 0.5 MG/2.5ML INH SOL NEB PRN (10:45)
[2020-12-13] MEDS ORDERED: ALBUTEROL SULF 2.5 MG/0.5ML(0.5%) NEB SOLN NEB PRN (10:45)
[2020-12-13] MEDS: FAMOTIDINE (10MG/ML) 2ML VL IV SCH ×2 (11:57→22:30)
[2020-12-13] MEDS: fentaNYL Drip 2500mCg/250mlNS 250 ML IV SCH (12:15)
[2020-12-13] MEDS: PROPOFOL 100 ML IV SCH (18:51)
[2020-12-13] MEDS: ATORVASTATIN 20 MG TAB PO SCH (22:30)
[2020-12-13 23:48] VITALS: BP 132/74
[2020-12-14] MEDS: PHENYLEPHRINE IV 250 ML IV SCH (00:12)
[2020-12-14] MEDS: ACCU-CHEK COMFORT CURVE STRIP VI SCH ×4 (00:20→17:55)
[2020-12-14] MEDS: D5W/SOD CHLO 0.9% 1,000 ML IV SCH ×4 (01:32→21:32)
[2020-12-14] MEDS: LORazepam 2MG/ML-1ML VIAL IV PRN (04:41)
[2020-12-14 05:00] VITALS: BP 117/68
[2020-12-14] MEDS: CLINDAMYCIN 600MG IV 50 ML IV SCH ×3 (05:29→21:29)
[2020-12-14] MEDS: InsuLIN REG 1unit/0.01ml Soln (100units/ml) SC SCH ×4 (05:29→18:01)
[2020-12-14 06:10] LABS: Basophils # (auto) 0 10 ^3/uL (0-0.2); Basophils % (auto) 0.5 % (0.0-2.0); Eosinophils # (auto) 0.1 10 ^3/uL (0-0.8); Eosinophils % (auto) 1.3 % (0.0-7.0); Hematocrit 27.3 % (36.0-46.0); Hemoglobin 9.5 g/dL (12.2-16.2); Lymphocytes # (auto) 1.5 10 ^3/uL (0.4-5.4); Mean Corpuscular Hgb Conc. 34.7 g/dL (32.0-36.0); Mean Corpuscular Volume 89.5 fL (80.0-100.0); Monocytes # (auto) 0.5 10 ^3/uL (0-1.3); Monocytes % (auto) 10.2 % (0.0-12.0); Neutrophils # (auto) 2.5 10 ^3/uL (1.6-8.6); Red Blood Cells 3.05 10^6/uL (4.0-5.20); White Blood Cell 4.5 10^3/uL (4.4-10.8)
[2020-12-14 06:35] LABS: Calcium 7.2 mg/dL (8.5-10.1)
[2020-12-14] MEDS: INSULIN LANTUS (GLARGINE) 1 /0.01ml (100units/ml) SC SCH ×3 (06:35→21:35)
[2020-12-14] MEDS: NEUTRA-PHOS TABLET PO SCH ×3 (08:00→17:55)
[2020-12-14] MEDS: CALCIUM W/VIT D (600MG/400IU) TAB PO SCH ×2 (08:00→17:55)
[2020-12-14 09:17] VITALS: BP 117/63
[2020-12-14] MEDS: ASPirin 81 mg TAB PO SCH (09:18)
[2020-12-14] MEDS: FAMOTIDINE (10MG/ML) 2ML VL IV SCH ×2 (09:23→21:27)
[2020-12-14] MEDS: ENOXAPARIN SOD 40 MG/0.4 ML SYRINGE SC SCH (09:24)
[2020-12-14] MEDS: cefTRIAXone 1GM/50ML D5W 50 ML IV SCH (09:24)
[2020-12-14 09:30] LABS: Potassium 2.9 mmol/L (3.5-5.1)
[2020-12-14] MEDS: POTASSIUM CHL 20MEQ/100ML 100 ML IV SCH ×3 (11:39→16:01)
[2020-12-14 14:26] VITALS: BP 126/74
[2020-12-14 15:05] LABS: Calcium 7.1 mg/dL (8.5-10.1); Potassium 3.2 mmol/L (3.5-5.1)
[2020-12-14 15:09] LABS: BUN/Creatinine Ratio 5.3
[2020-12-14 16:47] VITALS: BP 144/84
[2020-12-14] MEDS: ATORVASTATIN 20 MG TAB PO SCH (21:27)
[2020-12-15] MEDS: CLINDAMYCIN 600MG IV 50 ML IV SCH ×3 (06:36→22:14)
[2020-12-15] MEDS: InsuLIN REG 1unit/0.01ml Soln (100units/ml) SC SCH ×4 (06:37→17:34)
[2020-12-15] MEDS: ACCU-CHEK COMFORT CURVE STRIP VI SCH ×4 (06:38→17:33)
[2020-12-15] MEDS: INSULIN LANTUS (GLARGINE) 1 /0.01ml (100units/ml) SC SCH ×2 (06:40→22:17)
[2020-12-15] MEDS: D5W/SOD CHLO 0.9% 1,000 ML IV SCH ×4 (06:46→22:13)
[2020-12-15 07:24] LABS: Basophils # (auto) 0 10 ^3/uL (0-0.2); Basophils % (auto) 0.5 % (0.0-2.0); Eosinophils # (auto) 0.1 10 ^3/uL (0-0.8); Eosinophils % (auto) 2.6 % (0.0-7.0); Hematocrit 27.9 % (36.0-46.0); Hemoglobin 9.6 g/dL (12.2-16.2); Lymphocytes # (auto) 1.5 10 ^3/uL (0.4-5.4); Lymphocytes % (auto) 34.8 % (10.0-50.0); Mean Corpuscular Hgb Conc. 34.5 g/dL (32.0-36.0); Mean Corpuscular Volume 89.9 fL (80.0-100.0); Monocytes # (auto) 0.4 10 ^3/uL (0-1.3); Neutrophils # (auto) 2.2 10 ^3/uL (1.6-8.6); Neutrophils % (auto) 53.1 % (37.0-80.0); Nucleated Red Blood Cells % 0.1 %; Red Cell Distribution Width 15.9 % (11.8-14.3); White Blood Cell 4.2 10^3/uL (4.4-10.8)
[2020-12-15 07:53] LABS: BUN/Creatinine Ratio 5.6; Calcium 7.5 mg/dL (8.5-10.1); Potassium 3.4 mmol/L (3.5-5.1)
[2020-12-15] MEDS: cefTRIAXone 1GM/50ML D5W 50 ML IV SCH (08:27)
[2020-12-15] MEDS: ENOXAPARIN SOD 40 MG/0.4 ML SYRINGE SC SCH (08:28)
[2020-12-15] MEDS: FAMOTIDINE (10MG/ML) 2ML VL IV SCH (08:28)
[2020-12-15] MEDS: ASPirin 81 mg TAB PO SCH (08:28)
[2020-12-15] MEDS: CALCIUM W/VIT D (600MG/400IU) TAB PO SCH ×2 (08:28→17:33)
[2020-12-15] MEDS: NEUTRA-PHOS TABLET PO SCH ×3 (08:29→17:33)
[2020-12-15 08:56] VITALS: BP 130/80
[2020-12-15 09:56] VITALS: BP 130/80
[2020-12-15] MEDS ORDERED: POTASSIUM EFFERVESENT TAB 25 MEQ PO ONE (10:45)
[2020-12-15 10:59] VITALS: BP 130/80
[2020-12-15 13:00] VITALS: BP 122/74
[2020-12-15 17:00] VITALS: BP 124/77
[2020-12-15] MEDS: ACETAMINOPHEN 325 MG TAB PO PRN (17:34)
[2020-12-15 22:00] VITALS: BP 131/75
[2020-12-15] MEDS: ATORVASTATIN 20 MG TAB PO SCH (22:15)
[2020-12-16] MEDS: InsuLIN REG 1unit/0.01ml Soln (100units/ml) SC SCH ×3 (00:14→12:48)
[2020-12-16] MEDS: ACCU-CHEK COMFORT CURVE STRIP VI SCH ×3 (00:15→12:47)
[2020-12-16 05:00] VITALS: BP 124/77
[2020-12-16 05:38] LABS: Basophils # (auto) 0 10 ^3/uL (0-0.2); Basophils % (auto) 0.6 % (0.0-2.0); Eosinophils # (auto) 0.1 10 ^3/uL (0-0.8); Eosinophils % (auto) 2.9 % (0.0-7.0); Hematocrit 32.8 % (36.0-46.0); Hemoglobin 10.9 g/dL (12.2-16.2); Lymphocytes # (auto) 1.8 10 ^3/uL (0.4-5.4); Lymphocytes % (auto) 42.8 % (10.0-50.0); Mean Corpuscular Hemoglobin 29.8 pg (28.0-32.0); Mean Corpuscular Hgb Conc. 33.2 g/dL (32.0-36.0); Mean Corpuscular Volume 89.5 fL (80.0-100.0); Monocytes # (auto) 0.6 10 ^3/uL (0-1.3); Monocytes % (auto) 13.5 % (0.0-12.0); Neutrophils # (auto) 1.7 10 ^3/uL (1.6-8.6); Neutrophils % (auto) 40.2 % (37.0-80.0); Red Blood Cells 3.66 10^6/uL (4.0-5.20); Red Cell Distribution Width 15.5 % (11.8-14.3); White Blood Cell 4.2 10^3/uL (4.4-10.8)
[2020-12-16] MEDS: CLINDAMYCIN 600MG IV 50 ML IV SCH ×2 (05:49→14:00)
[2020-12-16] MEDS: D5W/SOD CHLO 0.9% 1,000 ML IV SCH ×2 (05:50→13:15)
[2020-12-16 05:57] LABS: Potassium 3.5 mmol/L (3.5-5.1)
[2020-12-16 06:01] LABS: Calcium 7.9 mg/dL (8.5-10.1)
[2020-12-16] MEDS: INSULIN LANTUS (GLARGINE) 1 /0.01ml (100units/ml) SC SCH (06:12)
[2020-12-16] MEDS: ENOXAPARIN SOD 40 MG/0.4 ML SYRINGE SC SCH (08:54)
[2020-12-16] MEDS: ASPirin 81 mg TAB PO SCH (08:54)
[2020-12-16] MEDS: cefTRIAXone 1GM/50ML D5W 50 ML IV SCH (08:54)
[2020-12-16] MEDS: CALCIUM W/VIT D (600MG/400IU) TAB PO SCH (08:55)
[2020-12-16] MEDS: NEUTRA-PHOS TABLET PO SCH ×2 (08:56→12:47)
[2020-12-16] MEDS: ACETAMINOPHEN 325 MG TAB PO PRN (08:58)
[2020-12-16] MEDS ORDERED: INSLANTI SC (10:33)
[2020-12-16 10:57] VITALS: BP 136/75
[2020-12-22] MEDS ORDERED: NIC21P TOP (09:59)
[2020-12-22] MEDS ORDERED: INSLANTI SC (09:59)
== END 2020-12-16 17:55 | disposition home or self-care (01) | DRG 133 ==
LOC: EDBD 09:28 → ER 09:28 → TELE 13:37 → TELE-WESTW 12-13 23:48
PROVIDERS: ADMIT Hospitalist; ATTEND Internal Medicine Pulmonary Disease
PROC: 5A1945Z Respiratory Ventilation, 24-96 Consecutive Hours (ICD-10-PCS; principal; 2020-12-09)
PROC: 0BH17EZ Insertion of Endotracheal Airway into Trachea, Via Natural or Artificial Opening (ICD-10-PCS; 2020-12-09)
DX: J96.01 Acute respiratory failure with hypoxia (principal); E10.10 Type 1 diabetes mellitus with ketoacidosis without coma; J18.9 Pneumonia, unspecified organism; N17.9 Acute kidney failure, unspecified; D72.829 Elevated white blood cell count, unspecified; E87.1 Hypo-osmolality and hyponatremia; E10.22 Type 1 diabetes mellitus with diabetic chronic kidney disease; F32.9 Major depressive disorder, single episode, unspecified; F41.9 Anxiety disorder, unspecified; N18.32 Chronic kidney disease, stage 3b; E87.5 Hyperkalemia; E78.5 Hyperlipidemia, unspecified; E87.6 Hypokalemia; F12.90 Cannabis use, unspecified, uncomplicated; E10.65 Type 1 diabetes mellitus with hyperglycemia; Z20.822 Contact with and (suspected) exposure to COVID-19; F17.210 Nicotine dependence, cigarettes, uncomplicated; Z79.4 Long term (current) use of insulin; Z82.49 Family history of ischemic heart disease and other diseases of the circulatory system; Z83.3 Family history of diabetes mellitus; Z91.19 Patient's noncompliance with other medical treatment and regimen; Z90.49 Acquired absence of other specified parts of digestive tract
CPT/HCPCS: 31500; 36415; 36556; 36600; 71045; 80048; 80053; 80061; 80307; 81001; 82010; 82306; 82805; 82947; 82962; 83036; 83735; 83880; 83930; 84100; 84132; 84443; 84484; 84702; 85025; 85610; 85730; 87040; 87070; 87081; 87086; 87205; 87426; 92610; 93005; 93306; 94002; 94003; 94640; 96361; 96365; 97163; 99291; G0378; J0696; J1815; J2250; J2704; J3480; J3490; J7042; J7060

== ENCOUNTER 2020-12-20 08:32 | Inpatient (IN) | payer OTHER ==
[~2020-12-20] VITALS: Ht 157.5 cm; Wt 90.2 kg
[2020-12-20] MEDS ORDERED: DEXTROSE (50%) 50ML SYRG IV PRN (09:00)
[2020-12-20] MEDS: ACCU-CHEK COMFORT CURVE STRIP VI SCH ×10 (09:00→22:30)
[2020-12-20] MEDS ORDERED: INSULIN LANTUS (GLARGINE) 1 /0.01ml (100units/ml) SC ONE (09:00)
[2020-12-20 09:29] LABS: Urine Bacteria NONE SEEN /hpf (None Seen); Urine Blood 3+ /uL (Negative); Urine Mucus FEW (None Seen); Urine WBC 9 /hpf (0 - 5)
[2020-12-20] MEDS ORDERED: SODIUM BICARBONATE 8.4 % INJ 50ML VIAL IV ONE (09:30)
[2020-12-20] MEDS: SODIUM CHLORIDE 0.9% 1,000 ML IV SCH ×2 (09:53→11:07)
[2020-12-20 10:20] LABS: Anion Gap 30 (5-15); Blood Urea Nitrogen 28 mg/dL (7-18); Calcium 8.8 mg/dL (8.5-10.1); Chloride 91 mmol/L (98-107); GFR African American 59 mL/min; GFR Non-African American 49 mL/min; Magnesium 2.5 mg/dL (1.6-2.6); Phosphorus 5.9 mg/dL (2.5-4.90); Sodium 125 mmol/L (136-145)
[2020-12-20 10:32] LABS: Eosinophils # (auto) 0 10 ^3/uL (0-0.8); Eosinophils % (auto) 0.1 % (0.0-7.0)
[2020-12-20] MEDS: InsuLIN R (HUMAN) 100 UNITS in SODIUM CHL 0.9% 99 ML IV SCH ×4 (11:04→22:50)
[2020-12-20 11:45] LABS: Basophils # (auto) 0.1 10 ^3/uL (0-0.2); Basophils % (auto) 0.7 % (0.0-2.0); Hematocrit 38.4 % (36.0-46.0); Lymphocytes # (auto) 2.8 10 ^3/uL (0.4-5.4); Lymphocytes % (auto) 15.7 % (10.0-50.0); Mean Corpuscular Hemoglobin 29.7 pg (28.0-32.0); Mean Corpuscular Hgb Conc. 29.6 g/dL (32.0-36.0); Mean Corpuscular Volume 100.4 fL (80.0-100.0); Monocytes # (auto) 0.4 10 ^3/uL (0-1.3); Monocytes % (auto) 2.5 % (0.0-12.0); Neutrophils # (auto) 14.3 10 ^3/uL (1.6-8.6); Red Blood Cells 3.82 10^6/uL (4.0-5.20); Red Cell Distribution Width 17.2 % (11.8-14.3); White Blood Cell 17.6 10^3/uL (4.4-10.8)
[2020-12-20 11:48] LABS: Hemoglobin 11.7 g/dL (12.2-16.2)
[2020-12-20 11:54] LABS: Carbon Dioxide 4 mmol/L (21-32); Glucose 946 mg/dL (74-106); Potassium 5.8 mmol/L (3.5-5.1)
[2020-12-20] MEDS ORDERED: SODIUM CHLORIDE 0.9% 1,000 ML IV SCH ×2 (13:00→15:00)
[2020-12-20] MEDS ORDERED: NITROGLYCERIN 0.4 MG SL TAB SL PRN (14:00)
[2020-12-20] MEDS ORDERED: ACETAMINOPHEN 500 MG TAB PO PRN (14:00)
[2020-12-20] MEDS ORDERED: MORPHINE SULFATE INJECTION 2 MG/ML SYRG IV PRN ×2 (14:00)
[2020-12-20] MEDS ORDERED: ONDANSETRON HCL 4 MG/2 ML VIAL IV PRN (14:00)
[2020-12-20] MEDS ORDERED: LACTATED RINGER'S 1,000 ML IV SCH (14:00)
[2020-12-20 16:03] LABS: Calcium 7.9 mg/dL (8.5-10.1); Potassium 4.1 mmol/L (3.5-5.1)
[2020-12-20 16:06] LABS: BUN/Creatinine Ratio 20.2
[2020-12-20 19:36] LABS: Amphetamine Screen, Urine NEGATIVE (NEGATIVE); Barbiturate Scree,Urine NEGATIVE (NEGATIVE); Benzodiazephine Screen, Urine NEGATIVE (NEGATIVE); Cannabinoid Screen, Urine NEGATIVE (NEGATIVE); Cocaine Screen, Urine NEGATIVE (NEGATIVE); Opiate Scree,Urine NEGATIVE (NEGATIVE); Phencyclidine Screen, Urine NEGATIVE (NEGATIVE)
[2020-12-20 19:37] LABS: Alcohol, Urine < 3.0 mg/dL (0-10)
[2020-12-20 21:27] LABS: BUN/Creatinine Ratio 20.8; Calcium 7.6 mg/dL (8.5-10.1)
[2020-12-20] MEDS: LORazepam 2MG/ML-1ML VIAL IV PRN (22:08)
[2020-12-20] MEDS ORDERED: D5W/SOD CHL 0.45% 1,000 ML IV SCH (23:00)
[2020-12-21] MEDS: ACCU-CHEK COMFORT CURVE STRIP VI SCH ×9 (01:30→21:58)
[2020-12-21] MEDS: InsuLIN R (HUMAN) 100 UNITS in SODIUM CHL 0.9% 99 ML IV SCH ×6 (02:44→06:00)
[2020-12-21 04:42] LABS: BUN/Creatinine Ratio 21.2; Calcium 7.5 mg/dL (8.5-10.1); Phosphorus 1.9 mg/dL (2.5-4.90); Potassium 3.9 mmol/L (3.5-5.1)
[2020-12-21] MEDS ORDERED: DEXTROSE (50%) 50ML SYRG IV PRN (09:15)
[2020-12-21] MEDS ORDERED: SOD CHL 0.45% 1,000 ML IV SCH (09:15)
[2020-12-21] MEDS: PANTOPRAZOLE 40 MG/10 ML VIAL INJ IV SCH (09:21)
[2020-12-21] MEDS: INSULIN LANTUS (GLARGINE) 1 /0.01ml (100units/ml) SC SCH (09:22)
[2020-12-21] MEDS: ENOXAPARIN SOD 40 MG/0.4 ML SYRINGE SC SCH (09:23)
[2020-12-21] MEDS: InsuLIN REG 1unit/0.01ml Soln (100units/ml) SC SCH ×3 (11:30→22:01)
[2020-12-21 14:00] VITALS: BP 119/74
[2020-12-21] MEDS ORDERED: NICOTINE 14 MG/24HR TOPICAL PATCH TD ONE (16:30)
[2020-12-21 17:00] VITALS: BP 117/69
[2020-12-21] MEDS: SOD CHL 0.45% 1,000 ML IV SCH (18:13)
[2020-12-21 20:00] VITALS: BP 121/72
[2020-12-21 22:00] VITALS: BP_SYST 121; BP_SYST 98; BP_DIAS 56; BP_DIAS 72
[2020-12-21] MEDS: LORazepam 2MG/ML-1ML VIAL IV PRN (23:36)
[2020-12-22 05:00] VITALS: BP 116/72
[2020-12-22] MEDS: ACCU-CHEK COMFORT CURVE STRIP VI SCH ×2 (06:31→11:16)
[2020-12-22] MEDS: InsuLIN REG 1unit/0.01ml Soln (100units/ml) SC SCH ×2 (06:36→11:17)
[2020-12-22 08:52] VITALS: BP 107/68
[2020-12-22 09:01] VITALS: BP 116/72
[2020-12-22] MEDS: SOD CHL 0.45% 1,000 ML IV SCH (09:10)
[2020-12-22 09:33] LABS: Basophils # (auto) 0.1 10 ^3/uL (0-0.2); Basophils % (auto) 0.9 % (0.0-2.0); Eosinophils # (auto) 0 10 ^3/uL (0-0.8); Eosinophils % (auto) 0.4 % (0.0-7.0); Hemoglobin 10.2 g/dL (12.2-16.2); Lymphocytes # (auto) 1.9 10 ^3/uL (0.4-5.4); Lymphocytes % (auto) 34.3 % (10.0-50.0); Mean Corpuscular Hemoglobin 30.9 pg (28.0-32.0); Mean Corpuscular Hgb Conc. 34.1 g/dL (32.0-36.0); Mean Corpuscular Volume 90.6 fL (80.0-100.0); Monocytes # (auto) 0.4 10 ^3/uL (0-1.3); Monocytes % (auto) 6.6 % (0.0-12.0); Neutrophils # (auto) 3.2 10 ^3/uL (1.6-8.6); Neutrophils % (auto) 57.8 % (37.0-80.0); Nucleated Red Blood Cells % 0.1 %; Red Blood Cells 3.31 10^6/uL (4.0-5.20); Red Cell Distribution Width 16.5 % (11.8-14.3); White Blood Cell 5.6 10^3/uL (4.4-10.8)
[2020-12-22 09:41] LABS: BUN/Creatinine Ratio 14.1; Calcium 7.8 mg/dL (8.5-10.1); Magnesium 1.8 mg/dL (1.6-2.6); Potassium 3.7 mmol/L (3.5-5.1)
[2020-12-22] MEDS: ENOXAPARIN SOD 40 MG/0.4 ML SYRINGE SC SCH (09:52)
[2020-12-22] MEDS: PANTOPRAZOLE 40 MG/10 ML VIAL INJ IV SCH (09:52)
[2020-12-22] MEDS ORDERED: INSLANTI SC (09:59)
[2020-12-22] MEDS ORDERED: NIC21P TOP (09:59)
[2020-12-22] MEDS ORDERED: NICOTINE 14 MG/24HR TOPICAL PATCH TD SCH (10:00)
[2020-12-22] MEDS ORDERED: MAGNESIUM OXIDE 400 MG TAB PO ONE (10:15)
[2020-12-22] MEDS: INSULIN LANTUS (GLARGINE) 1 /0.01ml (100units/ml) SC SCH (11:16)
[2020-12-22 13:11] VITALS: BP 119/79
== END 2020-12-22 14:40 | disposition home or self-care (01) | DRG 420 ==
LOC: ER 08:32 → EDBD 08:32 → TELE 13:48 → WEST WING 12-21 13:52
PROVIDERS: ADMIT Nurse Practitioner Acute Care; ATTEND Internal Medicine
PROC: 4A143B0 Monitoring of Venous Pressure, Central, Percutaneous Approach (ICD-10-PCS; principal; 2020-12-20)
PROC: 06HM33Z Insertion of Infusion Device into Right Femoral Vein, Percutaneous Approach (ICD-10-PCS; 2020-12-20)
DX: E11.10 Type 2 diabetes mellitus with ketoacidosis without coma (principal); N17.0 Acute kidney failure with tubular necrosis; R65.10 Systemic inflammatory response syndrome (SIRS) of non-infectious origin without acute organ dysfunction; F12.90 Cannabis use, unspecified, uncomplicated; F17.210 Nicotine dependence, cigarettes, uncomplicated; F41.1 Generalized anxiety disorder; Z20.822 Contact with and (suspected) exposure to COVID-19; Z79.4 Long term (current) use of insulin; Z91.14 Patient's other noncompliance with medication regimen; Z82.49 Family history of ischemic heart disease and other diseases of the circulatory system; Z83.3 Family history of diabetes mellitus; Z71.6 Tobacco abuse counseling; Z90.49 Acquired absence of other specified parts of digestive tract
CPT/HCPCS: 36415; 36556; 36600; 71045; 80048; 80307; 81001; 82010; 82805; 82947; 82962; 83735; 83930; 84100; 85025; 87426; 96361; 96372; 96374; 99291; C9113; G0378; J1815; J2405

== ENCOUNTER 2021-04-20 14:08 | Inpatient (IN) | payer OTHER ==
[~2021-04-20] VITALS: Ht 160 cm; Wt 63.8 kg
[~2021-04-20 14:08] MED LIST changes: +NIC21P TOP
[2021-04-20 15:13] LABS: Urine Bacteria FEW /hpf (None Seen); Urine Blood TRACE /uL (Negative); Urine Specific Gravity 1.015 (1.001-1.035); Urine WBC 1 /hpf (0 - 5)
[2021-04-20 16:46] LABS: Mean Corpuscular Hemoglobin 30.5 pg (28.0-32.0); Red Cell Distribution Width 15.3 % (11.8-14.3)
[2021-04-20 16:47] LABS: Hematocrit 42.5 % (36.0-46.0); Hemoglobin 11.9 g/dL (12.2-16.2); Mean Corpuscular Volume 108.9 fL (80.0-100.0)
[2021-04-20 16:53] LABS: Basophils % (manual) 0 (0.0-2.0); Blast Cells 0; Eosinophils % (manual) 0 (0-7); Metamyelocytes % 0; Myelocytes % 0; Promyelocytes % 0; Reactive Lymphocytes 0
[2021-04-20] MEDS ORDERED: cefTRIAXone 1GM/50ML D5W 50 ML IV ONE (17:00)
[2021-04-20 17:07] LABS: Albumin 3.9 g/dL (3.4-5.0); Calcium 8.1 mg/dL (8.5-10.1)
[2021-04-20 17:15] LABS: BUN/Creatinine Ratio 24.6; Bilirubin, Total 0.3 mg/dL (0.2-1.0); Total Protein 7.8 g/dL (6.4-8.2)
[2021-04-20 17:24] LABS: Potassium 6.1 mmol/L (3.5-5.1)
[2021-04-20] MEDS ORDERED: INSULIN LANTUS (GLARGINE) 1 /0.01ml (100units/ml) SC ONE (18:00)
[2021-04-20] MEDS ORDERED: DEXTROSE (50%) 50ML SYRG IV PRN ×3 (18:00→21:15)
[2021-04-20] MEDS ORDERED: NITROGLYCERIN 0.4 MG SL TAB SL PRN (18:00)
[2021-04-20] MEDS: SODIUM CHLORIDE 0.9% 1,000 ML IV SCH ×3 (18:00→20:14)
[2021-04-20] MEDS ORDERED: ACCU-CHEK COMFORT CURVE STRIP VI SCH ×2 (18:00→22:00)
[2021-04-20] MEDS ORDERED: MORPHINE SULFATE INJECTION 2 MG/ML SYRG IV PRN (18:00)
[2021-04-20] MEDS ORDERED: PROPOFOL 100 ML IV ONE (18:10)
[2021-04-20] MEDS ORDERED: ETOMIDATE (2MG/ML) 20ML VIAL IV ONE ×2 (18:10→19:00)
[2021-04-20] MEDS ORDERED: MIDAZOLAM DRIP 50 mg/50mL 50 ML IV ONE (18:10)
[2021-04-20] MEDS ORDERED: ROCURONIUM 10MG/ML 10ML VIAL IV ONE ×2 (18:10→19:00)
[2021-04-20 18:24] LABS: Band Neutrophils % (manual) 6; Lymphocytes % (manual) 9 (10.0-50.0); Monocytes % (manual) 3 (0-12)
[2021-04-20 18:35] VITALS: BP 137/66
[2021-04-20] MEDS: PROPOFOL 100 ML IV SCH (18:36)
[2021-04-20] MEDS ORDERED: SODIUM BICARBONATE 50ML VIAL 150 ML in SOD CHL 0.45% 1,000 ML IV ONE (19:15)
[2021-04-20] MEDS: MIDAZOLAM DRIP 50 mg/50mL 50 ML IV SCH ×2 (19:45→22:52)
[2021-04-20] MEDS ORDERED: LACTATED RINGER'S 2,050 ML IV ONE ×2 (20:15→20:45)
[2021-04-20 20:24] VITALS: BP 68/28
[2021-04-20] MEDS ORDERED: NOREPINEPHRINE 8 MG/250ML KIT 250 ML IV ONE (20:25)
[2021-04-20] MEDS: VASOPRESSIN 50 UNITS in D5W 5% 247.5 ML IV SCH (20:30)
[2021-04-20] MEDS: NOREPINEPHRINE 8 MG/250ML KIT 250 ML IV SCH (20:39)
[2021-04-20] MEDS ORDERED: VASOPRESSIN 20 UNIT/ML ONE (20:43)
[2021-04-20] MEDS ORDERED: ALBUMIN 25% 100 ML IV ONE (20:45)
[2021-04-20] MEDS ORDERED: InsuLIN R (HUMAN) 100 UNITS in SODIUM CHL 0.9% 99 ML IV SCH (21:15)
[2021-04-20] MEDS ORDERED: D5W/SOD CHL 0.45%/KCL 20MEQ 1,000 ML IV SCH (21:15)
[2021-04-20 21:46] VITALS: BP 94/64
[2021-04-20] MEDS ORDERED: InsuLIN REG 1unit/0.01ml Soln (100units/ml) SC SCH ×2 (22:00)
[2021-04-20] MEDS ORDERED: DIGOXIN (250MCG/ML) 2 ML AMPULE IV ONE (22:15)
[2021-04-20] MEDS: ACCU-CHEK COMFORT CURVE STRIP VI SCH (22:51)
[2021-04-20 23:04] LABS: BUN/Creatinine Ratio 26.7; Calcium 7.4 mg/dL (8.5-10.1)
[2021-04-20 23:43] VITALS: BP 125/60
[2021-04-20] MEDS ORDERED: InsuLIN REG 1unit/0.01ml Soln (100units/ml) IV ONE (23:45)
[2021-04-20] MEDS ORDERED: SODIUM ZIRCONIUM CYCL 10 GM PAK PO ONE (23:45)
[2021-04-20] MEDS ORDERED: SODIUM BICARBONATE 8.4 % INJ 50ML VIAL IV ONE (23:45)
[2021-04-20] MEDS ORDERED: ALBUTEROL SULF 2.5 MG/0.5ML(0.5%) NEB SOLN NEB ONE (23:45)
[2021-04-20] MEDS ORDERED: CALCIUM GLUC 1,000mg/50ml-NS 50 ML IV ONE (23:45)
[2021-04-20] MEDS: SODIUM BICARBONATE 50ML VIAL 150 ML in SOD CHL 0.45% 1,000 ML IV SCH (23:45)
[2021-04-20] MEDS ORDERED: FUROSEMIDE 20 MG/2 ML VIAL IV ONE (23:45)
[2021-04-20] MEDS ORDERED: ALBUTEROL SULF 2.5 MG/0.5ML(0.5%) NEB SOLN ONE (23:54)
[2021-04-21] VITALS (63 sets, daily range): BP systolic 100–174; BP diastolic 40–68
[2021-04-21] MEDS ORDERED: InsuLIN R (HUMAN) 100 UNITS in SODIUM CHL 0.9% 99 ML IV SCH ×3 (01:30→18:45)
[2021-04-21] MEDS: InsuLIN R (HUMAN) 100 UNITS in SODIUM CHL 0.9% 99 ML IV SCH ×4 (01:36→14:39)
[2021-04-21] MEDS: ACCU-CHEK COMFORT CURVE STRIP VI SCH ×16 (02:14→22:33)
[2021-04-21] MEDS ORDERED: SODIUM BICARBONATE 8.4 % INJ 50ML VIAL IV ONE ×3 (02:38→02:45)
[2021-04-21] MEDS ORDERED: InsuLIN REG 1unit/0.01ml Soln (100units/ml) ONE (03:35)
[2021-04-21 04:03] LABS: Albumin 2.6 g/dL (3.4-5.0); Calcium 7.3 mg/dL (8.5-10.1); Potassium 3.9 mmol/L (3.5-5.1)
[2021-04-21 04:05] LABS: Basophils # (auto) 0 10 ^3/uL (0-0.2); Basophils % (auto) 0.2 % (0.0-2.0); Eosinophils # (auto) 0.1 10 ^3/uL (0-0.8); Eosinophils % (auto) 0.5 % (0.0-7.0); Hematocrit 32.4 % (36.0-46.0); Hemoglobin 10.1 g/dL (12.2-16.2); Lymphocytes # (auto) 1.5 10 ^3/uL (0.4-5.4); Lymphocytes % (auto) 6.3 % (10.0-50.0); Mean Corpuscular Hemoglobin 29.6 pg (28.0-32.0); Mean Corpuscular Hgb Conc. 31.3 g/dL (32.0-36.0); Mean Corpuscular Volume 94.6 fL (80.0-100.0); Monocytes % (auto) 4.4 % (0.0-12.0); Neutrophils # (auto) 21.1 10 ^3/uL (1.6-8.6); Neutrophils % (auto) 88.6 % (37.0-80.0); Red Blood Cells 3.42 10^6/uL (4.0-5.20); Red Cell Distribution Width 13.9 % (11.8-14.3); White Blood Cell 23.8 10^3/uL (4.4-10.8)
[2021-04-21 04:07] LABS: Bilirubin, Total 0.3 mg/dL (0.2-1.0); Total Protein 5.3 g/dL (6.4-8.2)
[2021-04-21 04:22] LABS: BUN/Creatinine Ratio 25.7
[2021-04-21] MEDS ORDERED: InsuLIN REG 1unit/0.01ml Soln (100units/ml) SC SCH ×2 (07:00)
[2021-04-21] MEDS: SODIUM CHLORIDE 0.9% 1,000 ML IV SCH (08:02)
[2021-04-21] MEDS: PROPOFOL 100 ML IV SCH ×3 (08:03→21:50)
[2021-04-21] MEDS: MIDAZOLAM DRIP 50 mg/50mL 50 ML IV SCH ×3 (08:03→21:27)
[2021-04-21 09:44] LABS: BUN/Creatinine Ratio 24.1; Calcium 7.8 mg/dL (8.5-10.1)
[2021-04-21] MEDS ORDERED: INSULIN LANTUS (GLARGINE) 1 /0.01ml (100units/ml) SC SCH (10:00)
[2021-04-21 10:11] LABS: Potassium 2.6 mmol/L (3.5-5.1)
[2021-04-21] MEDS: INSULIN LANTUS (GLARGINE) 1 /0.01ml (100units/ml) SC SCH (10:45)
[2021-04-21] MEDS: ENOXAPARIN SOD 40 MG/0.4 ML SYRINGE SC SCH (10:45)
[2021-04-21] MEDS ORDERED: POTASSIUM CHLORIDE 40 MEQ in SOD CHL 0.45% 1,000 ML IV SCH (10:45)
[2021-04-21] MEDS: SOD CHL 0.9%/ KCL 40MEQ 1,000 ML IV SCH (11:13)
[2021-04-21] MEDS: POTASSIUM CHL 10MEQ/50ML 50 ML IV SCH ×4 (11:13→14:55)
[2021-04-21] MEDS: SODIUM BICARBONATE 50ML VIAL 150 ML in SOD CHL 0.45% 1,000 ML IV SCH (14:38)
[2021-04-21 15:36] LABS: Calcium 7.7 mg/dL (8.5-10.1); Potassium 3.3 mmol/L (3.5-5.1)
[2021-04-21 15:38] LABS: BUN/Creatinine Ratio 26.1
[2021-04-21] MEDS: NOREPINEPHRINE 8 MG/250ML KIT 250 ML IV SCH (20:30)
[2021-04-21] MEDS: VASOPRESSIN 50 UNITS in D5W 5% 247.5 ML IV SCH (20:30)
[2021-04-22] VITALS (98 sets, daily range): BP systolic 85–172; BP diastolic 41–84
[2021-04-22] MEDS: ACCU-CHEK COMFORT CURVE STRIP VI SCH ×10 (00:04→20:38)
[2021-04-22] MEDS: PROPOFOL 100 ML IV SCH (02:05)
[2021-04-22] MEDS: MIDAZOLAM DRIP 50 mg/50mL 50 ML IV SCH (02:05)
[2021-04-22] MEDS: SODIUM BICARBONATE 50ML VIAL 150 ML in SOD CHL 0.45% 1,000 ML IV SCH (03:00)
[2021-04-22 03:45] LABS: Basophils # (auto) 0.1 10 ^3/uL (0-0.2); Basophils % (auto) 0.3 % (0.0-2.0); Eosinophils # (auto) 0 10 ^3/uL (0-0.8); Hematocrit 32.3 % (36.0-46.0); Hemoglobin 10.9 g/dL (12.2-16.2); Lymphocytes # (auto) 2.1 10 ^3/uL (0.4-5.4); Lymphocytes % (auto) 8.8 % (10.0-50.0); Mean Corpuscular Hemoglobin 30.7 pg (28.0-32.0); Mean Corpuscular Hgb Conc. 33.8 g/dL (32.0-36.0); Mean Corpuscular Volume 90.8 fL (80.0-100.0); Monocytes # (auto) 1.1 10 ^3/uL (0-1.3); Monocytes % (auto) 4.5 % (0.0-12.0); Neutrophils # (auto) 20.5 10 ^3/uL (1.6-8.6); Neutrophils % (auto) 86.4 % (37.0-80.0); Red Blood Cells 3.56 10^6/uL (4.0-5.20); Red Cell Distribution Width 14.4 % (11.8-14.3); White Blood Cell 23.7 10^3/uL (4.4-10.8)
[2021-04-22 04:01] LABS: Calcium 7.8 mg/dL (8.5-10.1)
[2021-04-22 04:09] LABS: BUN/Creatinine Ratio 23.9
[2021-04-22] MEDS: SOD CHL 0.9%/ KCL 40MEQ 1,000 ML IV SCH (08:30)
[2021-04-22] MEDS: INSULIN LANTUS (GLARGINE) 1 /0.01ml (100units/ml) SC SCH (09:26)
[2021-04-22] MEDS: ENOXAPARIN SOD 40 MG/0.4 ML SYRINGE SC SCH (09:43)
[2021-04-22] MEDS ORDERED: DEXTROSE (50%) 50ML SYRG IV PRN (10:45)
[2021-04-22] MEDS ORDERED: cefTRIAXone 1GM/50ML D5W 50 ML IV ONE (11:00)
[2021-04-22] MEDS: InsuLIN REG 1unit/0.01ml Soln (100units/ml) SC SCH ×3 (11:46→20:38)
[2021-04-22] MEDS: NOREPINEPHRINE 8 MG/250ML KIT 250 ML IV SCH (20:30)
[2021-04-23] VITALS (98 sets, daily range): BP systolic 94–147; BP diastolic 40–99
[2021-04-23] MEDS: ACCU-CHEK COMFORT CURVE STRIP VI SCH ×7 (04:00→23:20)
[2021-04-23] MEDS: PROPOFOL 100 ML IV SCH ×2 (04:00→19:30)
[2021-04-23] MEDS: InsuLIN REG 1unit/0.01ml Soln (100units/ml) SC SCH ×7 (04:00→23:23)
[2021-04-23 04:13] LABS: Basophils # (auto) 0.1 10 ^3/uL (0-0.2); Basophils % (auto) 0.5 % (0.0-2.0); Eosinophils # (auto) 0 10 ^3/uL (0-0.8); Eosinophils % (auto) 0.1 % (0.0-7.0); Hematocrit 30.9 % (36.0-46.0); Hemoglobin 10.8 g/dL (12.2-16.2); Lymphocytes # (auto) 2.8 10 ^3/uL (0.4-5.4); Lymphocytes % (auto) 21.4 % (10.0-50.0); Mean Corpuscular Hemoglobin 30.9 pg (28.0-32.0); Mean Corpuscular Hgb Conc. 34.9 g/dL (32.0-36.0); Mean Corpuscular Volume 88.5 fL (80.0-100.0); Monocytes # (auto) 0.9 10 ^3/uL (0-1.3); Monocytes % (auto) 6.6 % (0.0-12.0); Neutrophils # (auto) 9.5 10 ^3/uL (1.6-8.6); Neutrophils % (auto) 71.4 % (37.0-80.0); Nucleated Red Blood Cells % 0.1 %; Red Blood Cells 3.49 10^6/uL (4.0-5.20); Red Cell Distribution Width 14.6 % (11.8-14.3); White Blood Cell 13.2 10^3/uL (4.4-10.8)
[2021-04-23 04:29] LABS: Calcium 7.8 mg/dL (8.5-10.1); Potassium 3.5 mmol/L (3.5-5.1)
[2021-04-23] MEDS: cefTRIAXone 1GM/50ML D5W 50 ML IV SCH (10:02)
[2021-04-23] MEDS: ENOXAPARIN SOD 40 MG/0.4 ML SYRINGE SC SCH (10:02)
[2021-04-23] MEDS: MIDAZOLAM DRIP 50 mg/50mL 50 ML IV SCH (10:03)
[2021-04-23] MEDS: INSULIN LANTUS (GLARGINE) 1 /0.01ml (100units/ml) SC SCH (10:03)
[2021-04-23] MEDS: D5W 5% 1,000 ML IV SCH ×2 (13:26→23:19)
[2021-04-23] MEDS ORDERED: Glucerna 1.2 Cal 1Liter BOTTLE GT SCH (14:00)
[2021-04-23] MEDS ORDERED: PANTOPRAZOLE 40 MG/10 ML VIAL INJ IV ONE (14:30)
[2021-04-23] MEDS: NOREPINEPHRINE 8 MG/250ML KIT 250 ML IV SCH (20:30)
[2021-04-24] VITALS (41 sets, daily range): BP systolic 94–153; BP diastolic 45–91
[2021-04-24] MEDS: PROPOFOL 100 ML IV SCH (02:50)
[2021-04-24 03:23] LABS: Basophils # (auto) 0.1 10 ^3/uL (0-0.2); Basophils % (auto) 0.9 % (0.0-2.0); Eosinophils # (auto) 0 10 ^3/uL (0-0.8); Eosinophils % (auto) 0.7 % (0.0-7.0); Hematocrit 33.2 % (36.0-46.0); Lymphocytes # (auto) 2.5 10 ^3/uL (0.4-5.4); Lymphocytes % (auto) 32.2 % (10.0-50.0); Mean Corpuscular Hgb Conc. 33.3 g/dL (32.0-36.0); Mean Corpuscular Volume 90.3 fL (80.0-100.0); Monocytes # (auto) 0.6 10 ^3/uL (0-1.3); Monocytes % (auto) 8.1 % (0.0-12.0); Neutrophils # (auto) 4.4 10 ^3/uL (1.6-8.6); Neutrophils % (auto) 58.1 % (37.0-80.0); Nucleated Red Blood Cells % 0.1 %; Red Blood Cells 3.67 10^6/uL (4.0-5.20); Red Cell Distribution Width 14.8 % (11.8-14.3); White Blood Cell 7.6 10^3/uL (4.4-10.8)
[2021-04-24 03:35] LABS: BUN/Creatinine Ratio 16.9; Potassium 3.7 mmol/L (3.5-5.1)
[2021-04-24] MEDS: ACCU-CHEK COMFORT CURVE STRIP VI SCH ×5 (04:35→20:31)
[2021-04-24] MEDS: InsuLIN REG 1unit/0.01ml Soln (100units/ml) SC SCH ×5 (04:36→20:33)
[2021-04-24] MEDS: D5W 5% 1,000 ML IV SCH ×2 (09:36→17:56)
[2021-04-24] MEDS: INSULIN LANTUS (GLARGINE) 1 /0.01ml (100units/ml) SC SCH (10:19)
[2021-04-24] MEDS: ENOXAPARIN SOD 40 MG/0.4 ML SYRINGE SC SCH (10:20)
[2021-04-24] MEDS: PANTOPRAZOLE 40 MG/10 ML VIAL INJ IV SCH (10:20)
[2021-04-24] MEDS: cefTRIAXone 1GM/50ML D5W 50 ML IV SCH (10:20)
[2021-04-25] MEDS: ACCU-CHEK COMFORT CURVE STRIP VI SCH ×6 (00:29→20:11)
[2021-04-25] MEDS ORDERED: ONDANSETRON HCL 4 MG/2 ML VIAL IV ONE (00:30)
[2021-04-25] MEDS: D5W 5% 1,000 ML IV SCH (02:51)
[2021-04-25] MEDS: InsuLIN REG 1unit/0.01ml Soln (100units/ml) SC SCH ×6 (03:54→20:11)
[2021-04-25 05:00] VITALS: BP 125/71
[2021-04-25 05:55] LABS: Basophils # (auto) 0 10 ^3/uL (0-0.2); Basophils % (auto) 0.7 % (0.0-2.0); Eosinophils # (auto) 0.1 10 ^3/uL (0-0.8); Eosinophils % (auto) 1.5 % (0.0-7.0); Hematocrit 30.8 % (36.0-46.0); Lymphocytes # (auto) 1.7 10 ^3/uL (0.4-5.4); Mean Corpuscular Hemoglobin 31.7 pg (28.0-32.0); Mean Corpuscular Hgb Conc. 35.8 g/dL (32.0-36.0); Mean Corpuscular Volume 88.5 fL (80.0-100.0); Monocytes # (auto) 0.4 10 ^3/uL (0-1.3); Neutrophils % (auto) 57.8 % (37.0-80.0); Nucleated Red Blood Cells % 0.1 %; Red Blood Cells 3.48 10^6/uL (4.0-5.20); Red Cell Distribution Width 14.3 % (11.8-14.3); White Blood Cell 5.2 10^3/uL (4.4-10.8)
[2021-04-25 06:27] LABS: BUN/Creatinine Ratio 13.2; Calcium 7.9 mg/dL (8.5-10.1)
[2021-04-25 06:46] LABS: Potassium 2.8 mmol/L (3.5-5.1)
[2021-04-25] MEDS ORDERED: POTASSIUM EFFERVESENT TAB 25 MEQ PO ONE (07:00)
[2021-04-25 08:35] VITALS: BP 125/76
[2021-04-25] MEDS: PANTOPRAZOLE 40 MG/10 ML VIAL INJ IV SCH (08:39)
[2021-04-25] MEDS: ENOXAPARIN SOD 40 MG/0.4 ML SYRINGE SC SCH (08:39)
[2021-04-25] MEDS: POTASSIUM CHL 10MEQ/50ML 50 ML IV SCH ×8 (08:45→20:17)
[2021-04-25] MEDS: cefTRIAXone 1GM/50ML D5W 50 ML IV SCH (08:46)
[2021-04-25] MEDS: INSULIN LANTUS (GLARGINE) 1 /0.01ml (100units/ml) SC SCH (09:06)
[2021-04-25 12:51] VITALS: BP 147/62
[2021-04-25 17:00] VITALS: BP 137/91
[2021-04-25 21:53] VITALS: BP 134/57
[2021-04-25] MEDS ORDERED: TEMAZEPAM 15 MG CAP PO ONE (22:45)
[2021-04-26] MEDS: ACCU-CHEK COMFORT CURVE STRIP VI SCH ×4 (00:14→12:59)
[2021-04-26] MEDS: InsuLIN REG 1unit/0.01ml Soln (100units/ml) SC SCH ×4 (00:16→12:59)
[2021-04-26 04:23] VITALS: BP 124/79
[2021-04-26 06:53] LABS: Potassium 3.5 mmol/L (3.5-5.1)
[2021-04-26 07:08] LABS: Basophils # (auto) 0 10 ^3/uL (0-0.2); Basophils % (auto) 0.6 % (0.0-2.0); Eosinophils # (auto) 0.1 10 ^3/uL (0-0.8); Eosinophils % (auto) 3.9 % (0.0-7.0); Hematocrit 32.1 % (36.0-46.0); Hemoglobin 10.9 g/dL (12.2-16.2); Lymphocytes # (auto) 1.8 10 ^3/uL (0.4-5.4); Mean Corpuscular Hemoglobin 30.2 pg (28.0-32.0); Mean Corpuscular Volume 88.9 fL (80.0-100.0); Monocytes # (auto) 0.5 10 ^3/uL (0-1.3); Monocytes % (auto) 13.4 % (0.0-12.0); Neutrophils # (auto) 1.3 10 ^3/uL (1.6-8.6); Neutrophils % (auto) 34.1 % (37.0-80.0); Nucleated Red Blood Cells % 0.1 %; Red Blood Cells 3.61 10^6/uL (4.0-5.20); Red Cell Distribution Width 14.1 % (11.8-14.3); White Blood Cell 3.7 10^3/uL (4.4-10.8)
[2021-04-26 07:12] LABS: BUN/Creatinine Ratio 17.8; Calcium 8.6 mg/dL (8.5-10.1)
[2021-04-26] MEDS: cefTRIAXone 1GM/50ML D5W 50 ML IV SCH (08:27)
[2021-04-26] MEDS: INSULIN LANTUS (GLARGINE) 1 /0.01ml (100units/ml) SC SCH (08:56)
[2021-04-26 09:00] VITALS: BP 140/67
[2021-04-26] MEDS: ENOXAPARIN SOD 40 MG/0.4 ML SYRINGE SC SCH (09:00)
[2021-04-26] MEDS: PANTOPRAZOLE 40 MG/10 ML VIAL INJ IV SCH (09:00)
[2021-04-26] MEDS ORDERED: INSLANTI SC (10:24)
[2021-04-26 10:55] VITALS: BP 146/67
[2021-04-26 13:00] VITALS: BP 140/81
== END 2021-04-26 13:45 | disposition home or self-care (01) | DRG 420 ==
LOC: EDBD 14:08 → ER 14:14 → TELE 17:54 → EDUNIT# 17:54 → EDBD 17:54 → ICU WEST 04-21 09:49 → TELE 04-21 10:12 → ICU WEST 04-21 10:46 → TELE-CENTR 04-24 18:35
PROVIDERS: ADMIT Internal Medicine; ATTEND Internal Medicine Pulmonary Disease
PROC: 5A1945Z Respiratory Ventilation, 24-96 Consecutive Hours (ICD-10-PCS; principal; 2021-04-20)
PROC: 0BH17EZ Insertion of Endotracheal Airway into Trachea, Via Natural or Artificial Opening (ICD-10-PCS; 2021-04-20)
PROC: 06HY33Z Insertion of Infusion Device into Lower Vein, Percutaneous Approach (ICD-10-PCS; 2021-04-20)
DX: E11.10 Type 2 diabetes mellitus with ketoacidosis without coma (principal); J96.01 Acute respiratory failure with hypoxia; R65.11 Systemic inflammatory response syndrome (SIRS) of non-infectious origin with acute organ dysfunction; N17.9 Acute kidney failure, unspecified; Z20.822 Contact with and (suspected) exposure to COVID-19; N39.0 Urinary tract infection, site not specified; E87.6 Hypokalemia; E87.0 Hyperosmolality and hypernatremia; Z79.4 Long term (current) use of insulin
CPT/HCPCS: 31500; 36415; 36556; 36600; 71045; 80048; 80053; 81001; 82805; 82962; 83735; 84132; 84484; 85007; 85025; 85027; 87070; 87081; 87205; 87426; 93005; 94002; 94003; 94640; 96361; 96365; C9113; G0378; J0696; J1815; J2250; J2405; J2704; J7060; P9047

== ENCOUNTER 2021-09-25 12:15 | Inpatient (IN) | payer OTHER ==
[~2021-09-25] VITALS: Ht 152.4 cm; Wt 135.0 kg
[2021-09-25] MEDS ORDERED: SODIUM CHLORIDE 0.9% 1,000 ML IV ONE (12:45)
[2021-09-25] MEDS ORDERED: InsuLIN REG 1unit/0.01ml Soln (100units/ml) IV ONE (13:00)
[2021-09-25] MEDS ORDERED: InsuLIN R (HUMAN) 100 UNITS in SODIUM CHL 0.9% 99 ML IV SCH ×5 (13:30→19:15)
[2021-09-25] MEDS ORDERED: ACCU-CHEK COMFORT CURVE STRIP VI SCH (13:30)
[2021-09-25] MEDS ORDERED: DEXTROSE (50%) 50ML SYRG IV PRN ×3 (13:30→19:15)
[2021-09-25] MEDS ORDERED: INSULIN LANTUS (GLARGINE) 1 /0.01ml (100units/ml) SC ONE ×3 (13:30→19:15)
[2021-09-25] MEDS: ACCU-CHEK COMFORT CURVE STRIP VI SCH ×10 (13:47→23:38)
[2021-09-25 13:59] LABS: Basophils # (auto) 0 10 ^3/uL (0-0.2); Basophils % (auto) 0.4 % (0.0-2.0); Eosinophils # (auto) 0 10 ^3/uL (0-0.8); Hematocrit 37.5 % (36.0-46.0); Hemoglobin 11.7 g/dL (12.2-16.2); Lymphocytes # (auto) 0.6 10 ^3/uL (0.4-5.4); Lymphocytes % (auto) 6.9 % (10.0-50.0); Mean Corpuscular Hemoglobin 26.6 pg (28.0-32.0); Mean Corpuscular Hgb Conc. 31.2 g/dL (32.0-36.0); Mean Corpuscular Volume 85.1 fL (80.0-100.0); Monocytes # (auto) 0.1 10 ^3/uL (0-1.3); Monocytes % (auto) 1.3 % (0.0-12.0); Neutrophils # (auto) 8.4 10 ^3/uL (1.6-8.6); Neutrophils % (auto) 91.4 % (37.0-80.0); Red Blood Cells 4.41 10^6/uL (4.0-5.20); Red Cell Distribution Width 17.8 % (11.8-14.3); White Blood Cell 9.2 10^3/uL (4.4-10.8)
[2021-09-25 14:17] LABS: Albumin 4.1 g/dL (3.4-5.0); Potassium 3.7 mmol/L (3.5-5.1)
[2021-09-25 14:21] LABS: BUN/Creatinine Ratio 17.4; Bilirubin, Total 0.4 mg/dL (0.2-1.0); Total Protein 8.6 g/dL (6.4-8.2)
[2021-09-25] MEDS: SODIUM CHLORIDE 0.9% 1,000 ML IV SCH ×5 (14:28→21:15)
[2021-09-25 15:10] LABS: Urine Bacteria NONE SEEN /hpf (None Seen); Urine Blood 3+ /uL (Negative); Urine Hyaline Cast FEW /lpf (0 - 2); Urine Mucus FEW (None Seen); Urine Specific Gravity 1.014 (1.001-1.035); Urine WBC 1 /hpf (0 - 5)
[2021-09-25] MEDS ORDERED: ONDANSETRON HCL 4 MG/2 ML VIAL IV ONE ×2 (15:15→18:00)
[2021-09-25] MEDS ORDERED: SODIUM CHLORIDE 0.9% 1,000 ML IV SCH ×2 (17:30→23:15)
[2021-09-25] MEDS ORDERED: ONDANSETRON HCL 4 MG/2 ML VIAL ONE (18:00)
[2021-09-25] MEDS: D5W/SOD CHL 0.45%/KCL 20MEQ 1,000 ML IV SCH ×2 (19:15→20:46)
[2021-09-25] MEDS ORDERED: POTASSIUM CHL 20MEQ/100ML 100 ML IV PRN (19:15)
[2021-09-25] MEDS: SOD CHL 0.9%/ KCL 20MEQ 1,000 ML IV SCH (19:15)
[2021-09-25 20:20] LABS: Alcohol, Urine < 3.0 mg/dL (0-10); Amphetamine Screen, Urine NEGATIVE (NEGATIVE); Barbiturate Scree,Urine NEGATIVE (NEGATIVE); Benzodiazephine Screen, Urine NEGATIVE (NEGATIVE); Cocaine Screen, Urine NEGATIVE (NEGATIVE); Opiate Scree,Urine NEGATIVE (NEGATIVE); Phencyclidine Screen, Urine NEGATIVE (NEGATIVE)
[2021-09-25 20:28] LABS: Cannabinoid Screen, Urine POSITIVE (NEGATIVE)
[2021-09-25 22:47] LABS: Blood Alcohol < 3.0 mg/dL (0-5); Phosphorus 3.4 mg/dL (2.5-4.90)
[2021-09-25 23:07] LABS: BUN/Creatinine Ratio 19.5; Calcium 8.4 mg/dL (8.5-10.1); Potassium 3.7 mmol/L (3.5-5.1)
[2021-09-25] MEDS: ONDANSETRON HCL 4 MG/2 ML VIAL IV PRN (23:28)
[2021-09-26] MEDS: D5W/SOD CHL 0.45%/KCL 20MEQ 1,000 ML IV SCH ×3 (00:58→04:15)
[2021-09-26] MEDS: InsuLIN R (HUMAN) 100 UNITS in SODIUM CHL 0.9% 99 ML IV SCH ×2 (01:04→04:11)
[2021-09-26] MEDS: ACCU-CHEK COMFORT CURVE STRIP VI SCH ×14 (01:08→19:57)
[2021-09-26] MEDS ORDERED: SODIUM CHLORIDE 0.9% 1,000 ML IV SCH (01:15)
[2021-09-26] MEDS: SOD CHL 0.9%/ KCL 20MEQ 1,000 ML IV SCH (01:55)
[2021-09-26] MEDS: SODIUM CHLORIDE 0.9% 1,000 ML IV SCH (02:10)
[2021-09-26 03:19] LABS: BUN/Creatinine Ratio 19.5; Calcium 8.4 mg/dL (8.5-10.1); Potassium 3.3 mmol/L (3.5-5.1)
[2021-09-26] MEDS ORDERED: InsuLIN R (HUMAN) 100 UNITS in SODIUM CHL 0.9% 99 ML IV SCH (04:15)
[2021-09-26] MEDS ORDERED: DEXTROSE (50%) 50ML SYRG IV PRN (06:30)
[2021-09-26 06:58] LABS: Basophils # (auto) 0 10 ^3/uL (0-0.2); Eosinophils # (auto) 0 10 ^3/uL (0-0.8); Eosinophils % (auto) 0.1 % (0.0-7.0); Monocytes # (auto) 0.9 10 ^3/uL (0-1.3)
[2021-09-26 07:01] LABS: Basophils % (auto) 0.1 % (0.0-2.0); Hematocrit 30.9 % (36.0-46.0); Lymphocytes % (auto) 8.6 % (10.0-50.0); Mean Corpuscular Hemoglobin 26.7 pg (28.0-32.0); Mean Corpuscular Hgb Conc. 32.5 g/dL (32.0-36.0); Mean Corpuscular Volume 82.3 fL (80.0-100.0); Monocytes % (auto) 8.2 % (0.0-12.0); Neutrophils # (auto) 9.5 10 ^3/uL (1.6-8.6); Red Blood Cells 3.76 10^6/uL (4.0-5.20); Red Cell Distribution Width 18.2 % (11.8-14.3); White Blood Cell 11.4 10^3/uL (4.4-10.8)
[2021-09-26] MEDS: InsuLIN REG 1unit/0.01ml Soln (100units/ml) SC SCH ×4 (08:10→22:12)
[2021-09-26] MEDS ORDERED: INSULIN LANTUS (GLARGINE) 1 /0.01ml (100units/ml) SC SCH ×2 (10:00)
[2021-09-26] MEDS: NICOTINE 7MG/24HR TOPICAL PATCH TD SCH (10:00)
[2021-09-26] MEDS: INSULIN LANTUS (GLARGINE) 1 /0.01ml (100units/ml) SC SCH (10:17)
[2021-09-26] MEDS: ENOXAPARIN SOD 40 MG/0.4 ML SYRINGE SC SCH (10:17)
[2021-09-26] MEDS: D5W/LACTATED RINGERS 1,000 ML IV SCH ×2 (20:45→22:11)
[2021-09-26 22:00] VITALS: BP 154/78
[2021-09-26] MEDS: FAMOTIDINE 20 MG TAB PO SCH (22:11)
[2021-09-27] MEDS: ONDANSETRON HCL 4 MG/2 ML VIAL IV PRN ×2 (00:03→06:02)
[2021-09-27] MEDS: ACCU-CHEK COMFORT CURVE STRIP VI SCH ×3 (00:41→15:20)
[2021-09-27] MEDS: InsuLIN REG 1unit/0.01ml Soln (100units/ml) SC SCH ×3 (00:41→12:00)
[2021-09-27 05:00] VITALS: BP 115/63
[2021-09-27 06:15] LABS: Calcium 8.2 mg/dL (8.5-10.1)
[2021-09-27 06:18] LABS: BUN/Creatinine Ratio 10.2
[2021-09-27 08:00] VITALS: BP_SYST 140; BP_SYST 145; BP_DIAS 82; BP_DIAS 85
[2021-09-27] MEDS: NICOTINE 7MG/24HR TOPICAL PATCH TD SCH (08:32)
[2021-09-27] MEDS: ENOXAPARIN SOD 40 MG/0.4 ML SYRINGE SC SCH (08:45)
[2021-09-27] MEDS: FAMOTIDINE 20 MG TAB PO SCH (08:45)
[2021-09-27] MEDS: INSULIN LANTUS (GLARGINE) 1 /0.01ml (100units/ml) SC SCH (08:46)
[2021-09-27] MEDS ORDERED: METO5TAB67 PO (10:28)
[2021-09-27] MEDS ORDERED: INSLANTI SC (10:28)
[2021-09-27] MEDS ORDERED: PANT40T PO (10:28)
[2021-09-27] MEDS ORDERED: POTASSIUM CHL 20 Meq TABLET PO ONE (10:30)
== END 2021-09-27 14:08 | disposition home or self-care (01) | DRG 420 ==
LOC: ER 12:15 → EDBD 12:15 → TELE 19:20 → TELE-WESTW 09-26 21:43
PROVIDERS: ADMIT Registered Nurse; ATTEND Hospitalist
DX: E11.10 Type 2 diabetes mellitus with ketoacidosis without coma (principal); N17.9 Acute kidney failure, unspecified; K76.0 Fatty (change of) liver, not elsewhere classified; E11.65 Type 2 diabetes mellitus with hyperglycemia; F19.10 Other psychoactive substance abuse, uncomplicated; F12.90 Cannabis use, unspecified, uncomplicated; Z79.4 Long term (current) use of insulin; Z83.3 Family history of diabetes mellitus; Z91.14 Patient's other noncompliance with medication regimen; Z72.0 Tobacco use; Z72.89 Other problems related to lifestyle; Z79.84 Long term (current) use of oral hypoglycemic drugs
CPT/HCPCS: 36415; 36600; 71045; 80048; 80053; 80307; 80320; 81001; 82010; 82805; 82962; 83036; 83735; 83930; 84100; 84484; 85025; 96361; 96372; 96374; 99291; G0378; J1815; J2405

== ENCOUNTER 2021-10-19 18:01 | Inpatient (IN) | payer OTHER ==
[~2021-10-19] VITALS: Ht 157.5 cm; Wt 52.5 kg
[~2021-10-19 18:01] MED LIST changes: +METO5TAB67 PO; +PANT40T PO
[2021-10-19] MEDS ORDERED: SODIUM CHLORIDE 0.9% 1,000 ML IV ONE ×2 (18:30)
[2021-10-19] MEDS ORDERED: InsuLIN REG 1unit/0.01ml Soln (100units/ml) IV ONE (18:30)
[2021-10-19] MEDS ORDERED: ONDANSETRON HCL 4 MG/2 ML VIAL IV ONE (18:30)
[2021-10-19] MEDS ORDERED: SODIUM BICARBONATE 8.4 % INJ 50ML VIAL IV ONE ×2 (18:30→20:00)
[2021-10-19 18:51] LABS: Urine Bacteria MOD /hpf (None Seen); Urine Blood 1+ /uL (Negative); Urine Hyaline Cast FEW /lpf (0 - 2); Urine Specific Gravity 1.015 (1.001-1.035); Urine WBC 76 /hpf (0 - 5)
[2021-10-19 19:00] LABS: Alcohol, Urine < 3.0 mg/dL (0-10); Amphetamine Screen, Urine POSITIVE (NEGATIVE); Barbiturate Scree,Urine NEGATIVE (NEGATIVE); Benzodiazephine Screen, Urine NEGATIVE (NEGATIVE); Cannabinoid Screen, Urine NEGATIVE (NEGATIVE); Cocaine Screen, Urine NEGATIVE (NEGATIVE); Opiate Scree,Urine NEGATIVE (NEGATIVE); Phencyclidine Screen, Urine NEGATIVE (NEGATIVE)
[2021-10-19] MEDS ORDERED: cefTRIAXone 1GM/50ML D5W 50 ML IV ONE (19:15)
[2021-10-19 19:29] LABS: Albumin 4.3 g/dL (3.4-5.0); Anion Gap 28 (5-15); Blood Alcohol < 3.0 mg/dL (0-5); Blood Urea Nitrogen 27 mg/dL (7-18); Calcium 9.2 mg/dL (8.5-10.1); Chloride 94 mmol/L (98-107); Lipase 100 U/L (73-393); Magnesium 2.3 mg/dL (1.6-2.6); Sodium 128 mmol/L (136-145)
[2021-10-19 19:37] LABS: Alanine Aminotransferase 28 U/L (13-56); Alkaline Phosphatase 194 U/L (45-117); Aspartate Aminotransferase 17 U/L (15-37); BUN/Creatinine Ratio 18.5; Bilirubin, Total 0.5 mg/dL (0.2-1.0); GFR African American 50 mL/min; GFR Non-African American 41 mL/min; Total Protein 8.2 g/dL (6.4-8.2)
[2021-10-19 19:45] LABS: Carbon Dioxide 6 mmol/L (21-32); Glucose 538 mg/dL (74-106); Potassium 6.1 mmol/L (3.5-5.1)
[2021-10-19 19:52] LABS: Basophils # (auto) 0 10 ^3/uL (0-0.2); Basophils % (auto) 0.5 % (0.0-2.0); Eosinophils # (auto) 0 10 ^3/uL (0-0.8); Hematocrit 37.5 % (36.0-46.0); Hemoglobin 11.2 g/dL (12.2-16.2); Lymphocytes # (auto) 0.6 10 ^3/uL (0.4-5.4); Lymphocytes % (auto) 8.2 % (10.0-50.0); Mean Corpuscular Hemoglobin 26.2 pg (28.0-32.0); Mean Corpuscular Hgb Conc. 29.9 g/dL (32.0-36.0); Mean Corpuscular Volume 87.5 fL (80.0-100.0); Monocytes # (auto) 0.2 10 ^3/uL (0-1.3); Monocytes % (auto) 2.4 % (0.0-12.0); Neutrophils # (auto) 6.6 10 ^3/uL (1.6-8.6); Neutrophils % (auto) 88.9 % (37.0-80.0); Red Blood Cells 4.28 10^6/uL (4.0-5.20); White Blood Cell 7.4 10^3/uL (4.4-10.8)
[2021-10-19] MEDS ORDERED: DEXTROSE (50%) 50ML SYRG IV PRN (20:00)
[2021-10-19] MEDS ORDERED: POTASSIUM CHL 20MEQ/100ML 200 ML IV PRN (20:00)
[2021-10-19 20:02] LABS: Red Cell Distribution Width 18.1 % (11.8-14.3)
[2021-10-19] MEDS ORDERED: SODIUM BICARBONATE 8.4% INJ 50ML SYRINGE ONE (20:16)
[2021-10-19] MEDS: SODIUM CHLORIDE 0.9% 1,000 ML IV SCH ×2 (22:32→22:45)
[2021-10-19] MEDS: ACCU-CHEK COMFORT CURVE STRIP VI SCH ×2 (22:45→23:58)
[2021-10-19] MEDS ORDERED: NITROGLYCERIN 0.4 MG SL TAB SL PRN (22:45)
[2021-10-19] MEDS: InsuLIN R (HUMAN) 100 UNITS in SODIUM CHL 0.9% 99 ML IV SCH (22:45)
[2021-10-19] MEDS ORDERED: MORPHINE SULFATE INJ 2 MG/ml SYRG IV PRN (22:45)
[2021-10-20] VITALS (50 sets, daily range): BP systolic 105–172; BP diastolic 41–87
[2021-10-20] MEDS ORDERED: SODIUM CHLORIDE 0.9% 1,000 ML IV SCH
[2021-10-20] MEDS: ONDANSETRON HCL 4 MG/2 ML VIAL IV PRN ×2 (00:41→06:09)
[2021-10-20] MEDS: ACCU-CHEK COMFORT CURVE STRIP VI SCH ×15 (01:41→22:30)
[2021-10-20] MEDS: SODIUM CHLORIDE 0.9% 1,000 ML IV SCH ×2 (02:13→09:20)
[2021-10-20 02:17] LABS: BUN/Creatinine Ratio 21.9; Calcium 7.8 mg/dL (8.5-10.1); Potassium 3.8 mmol/L (3.5-5.1)
[2021-10-20 06:04] LABS: Basophils # (auto) 0.1 10 ^3/uL (0-0.2); Basophils % (auto) 0.7 % (0.0-2.0); Eosinophils # (auto) 0 10 ^3/uL (0-0.8); Hematocrit 32.2 % (36.0-46.0); Hemoglobin 10.3 g/dL (12.2-16.2); Lymphocytes # (auto) 0.9 10 ^3/uL (0.4-5.4); Lymphocytes % (auto) 8.6 % (10.0-50.0); Mean Corpuscular Volume 84.6 fL (80.0-100.0); Monocytes # (auto) 0.2 10 ^3/uL (0-1.3); Monocytes % (auto) 2.2 % (0.0-12.0); Neutrophils # (auto) 9.7 10 ^3/uL (1.6-8.6); Neutrophils % (auto) 88.5 % (37.0-80.0); Red Cell Distribution Width 17.8 % (11.8-14.3)
[2021-10-20 06:12] LABS: Calcium 8.4 mg/dL (8.5-10.1); Potassium 4.3 mmol/L (3.5-5.1)
[2021-10-20 06:15] LABS: Albumin 3.8 g/dL (3.4-5.0); BUN/Creatinine Ratio 19.8
[2021-10-20 06:18] LABS: Bilirubin, Total 0.4 mg/dL (0.2-1.0); Total Protein 7.6 g/dL (6.4-8.2)
[2021-10-20 09:45] LABS: Anion Gap 22 (5-15); Carbon Dioxide 6 mmol/L (21-32); Chloride 113 mmol/L (98-107); Potassium 4.1 mmol/L (3.5-5.1); Sodium 141 mmol/L (136-145)
[2021-10-20 09:47] LABS: BUN/Creatinine Ratio 20.8; Blood Urea Nitrogen 21 mg/dL (7-18); Calcium 8.1 mg/dL (8.5-10.1); GFR African American 76 mL/min; GFR Non-African American 63 mL/min; Glucose 246 mg/dL (74-106)
[2021-10-20] MEDS ORDERED: SODIUM BICARBONATE 8.4 % INJ 50ML VIAL IV ONE (10:00)
[2021-10-20] MEDS: SODIUM BICARBONATE 50ML VIAL 150 ML in D5W 5% 1,000 ML IV SCH ×2 (10:43→23:30)
[2021-10-20] MEDS ORDERED: cefTRIAXone 1GM/50ML D5W 50 ML IV ONE (12:15)
[2021-10-20] MEDS ORDERED: LOSARTAN POTASSIUM 25 MG TAB PO ONE (12:15)
[2021-10-20 14:43] LABS: BUN/Creatinine Ratio 18.6; Calcium 8.3 mg/dL (8.5-10.1); Potassium 3.5 mmol/L (3.5-5.1)
[2021-10-20] MEDS ORDERED: POTASSIUM CHL 20 Meq TABLET PO ONE (18:00)
[2021-10-20 18:47] LABS: BUN/Creatinine Ratio 18.1; Calcium 8.1 mg/dL (8.5-10.1); Potassium 3.1 mmol/L (3.5-5.1)
[2021-10-20] MEDS: InsuLIN R (HUMAN) 100 UNITS in SODIUM CHL 0.9% 99 ML IV SCH (20:00)
[2021-10-21] VITALS (15 sets, daily range): BP systolic 98–157; BP diastolic 52–89
[2021-10-21] MEDS: ACCU-CHEK COMFORT CURVE STRIP VI SCH ×9 (00:19→23:23)
[2021-10-21 00:58] LABS: Anion Gap 14 (5-15); BUN/Creatinine Ratio 12.9; Blood Urea Nitrogen 11 mg/dL (7-18); Carbon Dioxide 21 mmol/L (21-32); Chloride 109 mmol/L (98-107); GFR African American 93 mL/min; GFR Non-African American 77 mL/min; Glucose 139 mg/dL (74-106); Potassium 3.5 mmol/L (3.5-5.1); Sodium 144 mmol/L (136-145)
[2021-10-21] MEDS: ONDANSETRON HCL 4 MG/2 ML VIAL IV PRN ×2 (04:12→19:28)
[2021-10-21 04:22] LABS: Anion Gap 15 (5-15); BUN/Creatinine Ratio 12.3; Blood Urea Nitrogen 9 mg/dL (7-18); Calcium 8.3 mg/dL (8.5-10.1); Carbon Dioxide 21 mmol/L (21-32); Chloride 105 mmol/L (98-107); GFR African American 111 mL/min; GFR Non-African American 92 mL/min; Glucose 184 mg/dL (74-106); Potassium 3.4 mmol/L (3.5-5.1); Sodium 141 mmol/L (136-145)
[2021-10-21] MEDS ORDERED: DEXTROSE (50%) 50ML SYRG IV PRN (05:15)
[2021-10-21] MEDS ORDERED: INSULIN LANTUS (GLARGINE) 1 /0.01ml (100units/ml) SC ONE (05:15)
[2021-10-21] MEDS ORDERED: METOCLOPRAMIDE HCL 5MG/ml INJ 2ml VIAL ONE (05:59)
[2021-10-21] MEDS: cefTRIAXone 1GM/50ML D5W 50 ML IV SCH (08:22)
[2021-10-21] MEDS: InsuLIN REG 1unit/0.01ml Soln (100units/ml) SC SCH ×5 (08:25→23:24)
[2021-10-21] MEDS ORDERED: POTASSIUM CHL 20 Meq TABLET PO ONE (08:45)
[2021-10-21] MEDS: LOSARTAN POTASSIUM 25 MG TAB PO SCH (10:06)
[2021-10-21] MEDS ORDERED: METOCLOPRAMIDE HCL 5MG/ml INJ 2ml VIAL IV SCH (12:00)
[2021-10-21 12:24] LABS: BUN/Creatinine Ratio 11.4; Calcium 8.1 mg/dL (8.5-10.1); Potassium 3.2 mmol/L (3.5-5.1)
[2021-10-21] MEDS ORDERED: NITROGLYCERIN 2% OINT 1GM PKG TD SCH (14:00)
[2021-10-21] MEDS ORDERED: METOCLOPRAMIDE HCL 5MG/ml INJ 2ml VIAL IV PRN (23:15)
[2021-10-21] MEDS: METOCLOPRAMIDE HCL 5MG/ml INJ 2ml VIAL IV PRN (23:24)
[2021-10-22] MEDS: InsuLIN REG 1unit/0.01ml Soln (100units/ml) SC SCH ×6 (03:16→23:21)
[2021-10-22] MEDS: ACCU-CHEK COMFORT CURVE STRIP VI SCH ×6 (03:21→23:21)
[2021-10-22 04:44] VITALS: BP 159/87
[2021-10-22 06:52] LABS: Basophils # (auto) 0 10 ^3/uL (0-0.2); Basophils % (auto) 0.7 % (0.0-2.0); Eosinophils # (auto) 0 10 ^3/uL (0-0.8); Mean Corpuscular Volume 80.8 fL (80.0-100.0); Monocytes # (auto) 0.6 10 ^3/uL (0-1.3); Red Cell Distribution Width 18.3 % (11.8-14.3)
[2021-10-22 06:53] LABS: Potassium 3.3 mmol/L (3.5-5.1)
[2021-10-22 06:56] LABS: Eosinophils % (auto) 0.2 % (0.0-7.0); Hematocrit 34.8 % (36.0-46.0); Hemoglobin 11.2 g/dL (12.2-16.2); Lymphocytes # (auto) 1.8 10 ^3/uL (0.4-5.4); Lymphocytes % (auto) 26.6 % (10.0-50.0); Mean Corpuscular Hgb Conc. 32.2 g/dL (32.0-36.0); Neutrophils # (auto) 4.3 10 ^3/uL (1.6-8.6); Neutrophils % (auto) 63.5 % (37.0-80.0); Nucleated Red Blood Cells % 0.1 %; White Blood Cell 6.9 10^3/uL (4.4-10.8)
[2021-10-22 07:01] LABS: BUN/Creatinine Ratio 14.5; Calcium 8.6 mg/dL (8.5-10.1)
[2021-10-22 08:00] VITALS: BP 157/72
[2021-10-22] MEDS: cefTRIAXone 1GM/50ML D5W 50 ML IV SCH (08:34)
[2021-10-22 08:39] VITALS: BP_SYST 140; BP_SYST 144; BP_DIAS 84; BP_DIAS 93
[2021-10-22] MEDS: METOCLOPRAMIDE HCL 5MG/ml INJ 2ml VIAL IV PRN ×3 (08:59→23:51)
[2021-10-22] MEDS: INSULIN LANTUS (GLARGINE) 1 /0.01ml (100units/ml) SC SCH (08:59)
[2021-10-22] MEDS: LOSARTAN POTASSIUM 25 MG TAB PO SCH (09:49)
[2021-10-22] MEDS ORDERED: INSULIN LANTUS (GLARGINE) 1 /0.01ml (100units/ml) SC SCH (10:00)
[2021-10-22] MEDS ORDERED: POTASSIUM EFFERVESENT TAB 25 MEQ PO ONE (10:45)
[2021-10-22] MEDS ORDERED: POTASSIUM CHLORIDE 40 MEQ, LIDOCAINE 1% (LOCAL ANESTH.) 4 ML in SODIUM CHL 0.9% 250 ML IV ONE (12:00)
[2021-10-22] MEDS: SOD CHL 0.9%/ KCL 40MEQ 1,000 ML IV SCH ×2 (12:02→23:56)
[2021-10-22 12:07] LABS: Amylase 27 U/L (25-115); Lipase 139 U/L (73-393)
[2021-10-22 12:34] VITALS: BP 128/92
[2021-10-22 16:42] VITALS: BP 135/90
[2021-10-22 21:32] VITALS: BP 116/65
[2021-10-23] VITALS (7 sets, daily range): BP systolic 125–170; BP diastolic 75–93
[2021-10-23] MEDS: ACCU-CHEK COMFORT CURVE STRIP VI SCH ×5 (04:03→20:19)
[2021-10-23] MEDS: InsuLIN REG 1unit/0.01ml Soln (100units/ml) SC SCH ×5 (04:03→20:18)
[2021-10-23] MEDS: METOCLOPRAMIDE HCL 5MG/ml INJ 2ml VIAL IV PRN (08:25)
[2021-10-23] MEDS: cefTRIAXone 1GM/50ML D5W 50 ML IV SCH (08:51)
[2021-10-23] MEDS: LOSARTAN POTASSIUM 25 MG TAB PO SCH (09:43)
[2021-10-23] MEDS: INSULIN LANTUS (GLARGINE) 1 /0.01ml (100units/ml) SC SCH (09:44)
[2021-10-23] MEDS: SOD CHL 0.9%/ KCL 40MEQ 1,000 ML IV SCH ×2 (12:00→23:55)
[2021-10-24] MEDS: ACCU-CHEK COMFORT CURVE STRIP VI SCH ×5 (01:16→15:43)
[2021-10-24] MEDS: SOD CHL 0.9%/ KCL 40MEQ 1,000 ML IV SCH ×2 (01:17→17:05)
[2021-10-24] MEDS: METOCLOPRAMIDE HCL 5MG/ml INJ 2ml VIAL IV PRN ×2 (01:30→10:18)
[2021-10-24] MEDS: InsuLIN REG 1unit/0.01ml Soln (100units/ml) SC SCH ×5 (04:00→15:46)
[2021-10-24 05:00] VITALS: BP 156/87
[2021-10-24] MEDS ORDERED: PROMETHAZINE HCL 25 MG/ML 1ML IV PRN (05:30)
[2021-10-24] MEDS ORDERED: hydrALAZINE HCL 20 MG/ML VL IV PRN (05:30)
[2021-10-24 07:53] LABS: Basophils # (auto) 0 10 ^3/uL (0-0.2); Eosinophils # (auto) 0 10 ^3/uL (0-0.8); Eosinophils % (auto) 0.5 % (0.0-7.0); Lymphocytes # (auto) 1.6 10 ^3/uL (0.4-5.4); Mean Corpuscular Hgb Conc. 31.6 g/dL (32.0-36.0); Monocytes # (auto) 0.3 10 ^3/uL (0-1.3); Neutrophils # (auto) 2.2 10 ^3/uL (1.6-8.6); Nucleated Red Blood Cells % 0.1 %
[2021-10-24 07:56] LABS: Basophils % (auto) 1.2 % (0.0-2.0); Hematocrit 35.4 % (36.0-46.0); Hemoglobin 11.2 g/dL (12.2-16.2); Lymphocytes % (auto) 38.3 % (10.0-50.0); Mean Corpuscular Volume 82.2 fL (80.0-100.0); Monocytes % (auto) 6.8 % (0.0-12.0); Neutrophils % (auto) 53.2 % (37.0-80.0); Red Cell Distribution Width 18.2 % (11.8-14.3); White Blood Cell 4.1 10^3/uL (4.4-10.8)
[2021-10-24 08:00] VITALS: BP 143/83
[2021-10-24 08:06] LABS: Albumin 3.2 g/dL (3.4-5.0); Calcium 8.6 mg/dL (8.5-10.1); Magnesium 1.6 mg/dL (1.6-2.6); Potassium 4.4 mmol/L (3.5-5.1)
[2021-10-24 08:10] LABS: Bilirubin, Total 0.4 mg/dL (0.2-1.0); Phosphorus 2.8 mg/dL (2.5-4.90); Total Protein 6.3 g/dL (6.4-8.2)
[2021-10-24 09:00] VITALS: BP 178/94
[2021-10-24] MEDS ORDERED: PROM25TA5 PO (10:00)
[2021-10-24] MEDS: cefTRIAXone 1GM/50ML D5W 50 ML IV SCH (10:17)
[2021-10-24] MEDS: LOSARTAN POTASSIUM 25 MG TAB PO SCH (10:17)
[2021-10-24] MEDS: INSULIN LANTUS (GLARGINE) 1 /0.01ml (100units/ml) SC SCH (10:25)
[2021-10-24 13:00] VITALS: BP 145/99
[2021-10-24 15:29] VITALS: BP 145/88
[2021-10-24 17:09] VITALS: BP 130/74
[2021-10-24] MEDS ORDERED: BLOO1KIT60 XX (17:19)
[2021-10-24] MEDS ORDERED: INSLANTI SC (17:20)
[2021-10-24] MEDS ORDERED: INSU100I49 SC (19:06)
== END 2021-10-24 18:34 | disposition home or self-care (01) | DRG 420 ==
LOC: ER 18:01 → EDBD 18:01 → TELE 22:49 → ICU WEST 10-20 06:27 → CENTRAL 10-21 17:59
PROVIDERS: ADMIT Nurse Practitioner; ATTEND Internal Medicine Pulmonary Disease
DX: E11.10 Type 2 diabetes mellitus with ketoacidosis without coma (principal); N17.9 Acute kidney failure, unspecified; R65.10 Systemic inflammatory response syndrome (SIRS) of non-infectious origin without acute organ dysfunction; F15.10 Other stimulant abuse, uncomplicated; Z20.822 Contact with and (suspected) exposure to COVID-19; E11.65 Type 2 diabetes mellitus with hyperglycemia; Z79.899 Other long term (current) drug therapy
CPT/HCPCS: 36415; 36600; 74176; 80048; 80053; 80307; 80320; 81001; 81025; 82010; 82150; 82805; 82962; 83605; 83690; 83735; 83930; 84100; 84484; 85025; 87040; 87081; 87086; 93005; 96361; 96365; 96375; 96376; 99291; G0378; J0696; J1815; J2001; J2405

== ENCOUNTER 2021-11-29 16:49 | Inpatient (IN) | payer OTHER ==
[~2021-11-29] VITALS: Ht 157.5 cm; Wt 54.6 kg
[~2021-11-29 16:49] MED LIST changes: +BLOO1KIT60 XX; +INSU100I49 SC; +PROM25TA5 PO
[2021-11-29 18:43] LABS: Basophils # (auto) 0 10 ^3/uL (0-0.2); Basophils % (auto) 0.4 % (0.0-2.0); Eosinophils # (auto) 0 10 ^3/uL (0-0.8); Hematocrit 36.2 % (36.0-46.0); Hemoglobin 11.4 g/dL (12.2-16.2); Lymphocytes # (auto) 1.4 10 ^3/uL (0.4-5.4); Lymphocytes % (auto) 18.5 % (10.0-50.0); Mean Corpuscular Hemoglobin 27.3 pg (28.0-32.0); Mean Corpuscular Hgb Conc. 31.4 g/dL (32.0-36.0); Monocytes # (auto) 0.6 10 ^3/uL (0-1.3); Monocytes % (auto) 7.4 % (0.0-12.0); Neutrophils # (auto) 5.6 10 ^3/uL (1.6-8.6); Neutrophils % (auto) 73.7 % (37.0-80.0); Red Blood Cells 4.17 10^6/uL (4.0-5.20); Red Cell Distribution Width 19.9 % (11.8-14.3); White Blood Cell 7.6 10^3/uL (4.4-10.8)
[2021-11-29 19:02] LABS: Albumin 3.7 g/dL (3.4-5.0); BUN/Creatinine Ratio 23.7; Calcium 8.3 mg/dL (8.5-10.1)
[2021-11-29 19:05] LABS: Bilirubin, Total 0.4 mg/dL (0.2-1.0); Total Protein 7.2 g/dL (6.4-8.2)
[2021-11-29] MEDS ORDERED: SODIUM CHLORIDE 0.9% 2,000 ML IV ONE (21:45)
[2021-11-29] MEDS ORDERED: InsuLIN REG 1unit/0.01ml Soln (100units/ml) IV ONE (21:45)
[2021-11-29] MEDS ORDERED: ONDANSETRON HCL 4 MG/2 ML VIAL IV ONE (21:45)
[2021-11-29] MEDS ORDERED: InsuLIN R (HUMAN) 100 UNITS in SODIUM CHL 0.9% 99 ML IV SCH (22:30)
[2021-11-29] MEDS ORDERED: DEXTROSE (50%) 50ML SYRG IV PRN ×2 (22:30→22:45)
[2021-11-29] MEDS: ACCU-CHEK COMFORT CURVE STRIP VI SCH ×3 (22:40→23:57)
[2021-11-29] MEDS ORDERED: MORPHINE SULFATE INJ 2 MG/ml SYRG IV PRN (22:45)
[2021-11-29] MEDS ORDERED: NITROGLYCERIN 0.4 MG SL TAB SL PRN (22:45)
[2021-11-29] MEDS ORDERED: INSULIN LANTUS (GLARGINE) 1 /0.01ml (100units/ml) SC ONE (22:45)
[2021-11-29] MEDS ORDERED: InsuLIN REG 1unit/0.01ml Soln (100units/ml) ONE (22:46)
[2021-11-29 22:59] LABS: Magnesium 1.7 mg/dL (1.6-2.6); Phosphorus 3.8 mg/dL (2.5-4.90)
[2021-11-30] VITALS (42 sets, daily range): BP systolic 79–169; BP diastolic 33–90
[2021-11-30] MEDS: SODIUM CHLORIDE 0.9% 1,000 ML IV SCH ×2 (00:06→02:44)
[2021-11-30] MEDS: ONDANSETRON HCL 4 MG/2 ML VIAL IV PRN ×3 (00:25→20:12)
[2021-11-30 01:08] LABS: Urine Bacteria MOD /hpf (None Seen); Urine Blood Negative /uL (Negative); Urine Hyaline Cast FEW /lpf (0 - 2); Urine Mucus FEW (None Seen); Urine Specific Gravity 1.013 (1.001-1.035); Urine WBC 1 /hpf (0 - 5)
[2021-11-30] MEDS: ACCU-CHEK COMFORT CURVE STRIP VI SCH ×17 (01:30→22:35)
[2021-11-30] MEDS ORDERED: LORazepam 2MG/ML-1ML VIAL IV ONE ×3 (01:45→05:30)
[2021-11-30] MEDS ORDERED: METOCLOPRAMIDE HCL 5MG/ml INJ 2ml VIAL IV ONE ×2 (01:45)
[2021-11-30] MEDS ORDERED: SODIUM CHLORIDE 0.9% 1,000 ML IV SCH ×2 (02:45→04:45)
[2021-11-30 06:18] LABS: Calcium 7.4 mg/dL (8.5-10.1); Potassium 4.4 mmol/L (3.5-5.1)
[2021-11-30 06:19] LABS: Basophils # (auto) 0 10 ^3/uL (0-0.2); Basophils % (auto) 0.5 % (0.0-2.0); Eosinophils # (auto) 0 10 ^3/uL (0-0.8); Eosinophils % (auto) 0.1 % (0.0-7.0); Hematocrit 34.5 % (36.0-46.0); Hemoglobin 10.8 g/dL (12.2-16.2); Lymphocytes # (auto) 1.7 10 ^3/uL (0.4-5.4); Lymphocytes % (auto) 19.5 % (10.0-50.0); Mean Corpuscular Hemoglobin 27.4 pg (28.0-32.0); Mean Corpuscular Hgb Conc. 31.3 g/dL (32.0-36.0); Mean Corpuscular Volume 87.6 fL (80.0-100.0); Monocytes # (auto) 0.7 10 ^3/uL (0-1.3); Monocytes % (auto) 8.1 % (0.0-12.0); Neutrophils # (auto) 6.3 10 ^3/uL (1.6-8.6); Neutrophils % (auto) 71.8 % (37.0-80.0); Red Blood Cells 3.94 10^6/uL (4.0-5.20); White Blood Cell 8.8 10^3/uL (4.4-10.8)
[2021-11-30 06:22] LABS: Albumin 3.5 g/dL (3.4-5.0); BUN/Creatinine Ratio 21.4
[2021-11-30 06:24] LABS: Bilirubin, Total 0.4 mg/dL (0.2-1.0); Total Protein 6.5 g/dL (6.4-8.2)
[2021-11-30 06:38] LABS: Red Cell Distribution Width 19.8 % (11.8-14.3)
[2021-11-30] MEDS ORDERED: PANTOPRAZOLE 40 MG/10 ML VIAL INJ IV SCH (10:00)
[2021-11-30] MEDS ORDERED: INSULIN LANTUS (GLARGINE) 1 /0.01ml (100units/ml) SC SCH (10:00)
[2021-11-30 10:10] LABS: Calcium 7.4 mg/dL (8.5-10.1); Potassium 3.8 mmol/L (3.5-5.1)
[2021-11-30 10:13] LABS: BUN/Creatinine Ratio 18.1
[2021-11-30] MEDS ORDERED: D5W/SOD CHL 0.45%/KCL 20MEQ 1,000 ML IV SCH (12:30)
[2021-11-30] MEDS ORDERED: InsuLIN R (HUMAN) 100 UNITS in SODIUM CHL 0.9% 99 ML IV SCH (13:00)
[2021-11-30] MEDS: D5W/SOD CHL 0.45%/KCL 20MEQ 1,000 ML IV SCH ×2 (14:00→20:03)
[2021-11-30] MEDS ORDERED: INSULIN LANTUS (GLARGINE) 1 /0.01ml (100units/ml) SC ONE (14:00)
[2021-11-30] MEDS ORDERED: PANTOPRAZOLE 40 MG/10 ML VIAL INJ IV ONE (14:00)
[2021-11-30 15:09] LABS: Alcohol, Urine < 3.0 mg/dL (0-10); Amphetamine Screen, Urine NEGATIVE (NEGATIVE); Barbiturate Scree,Urine NEGATIVE (NEGATIVE); Benzodiazephine Screen, Urine NEGATIVE (NEGATIVE); Cannabinoid Screen, Urine NEGATIVE (NEGATIVE); Cocaine Screen, Urine NEGATIVE (NEGATIVE); Opiate Scree,Urine NEGATIVE (NEGATIVE); Phencyclidine Screen, Urine NEGATIVE (NEGATIVE)
[2021-11-30 16:21] LABS: BUN/Creatinine Ratio 9.5; Calcium 7.6 mg/dL (8.5-10.1); Potassium 4.1 mmol/L (3.5-5.1)
[2021-11-30 22:58] LABS: Calcium 7.7 mg/dL (8.5-10.1); Potassium 3.6 mmol/L (3.5-5.1)
[2021-12-01] VITALS (48 sets, daily range): BP systolic 98–173; BP diastolic 47–99
[2021-12-01] MEDS: ACCU-CHEK COMFORT CURVE STRIP VI SCH ×13 (00:18→22:00)
[2021-12-01] MEDS: D5W/SOD CHL 0.45%/KCL 20MEQ 1,000 ML IV SCH ×2 (03:11→11:17)
[2021-12-01 03:54] LABS: Basophils # (auto) 0.1 10 ^3/uL (0-0.2); Basophils % (auto) 1.4 % (0.0-2.0); Eosinophils # (auto) 0.1 10 ^3/uL (0-0.8); Eosinophils % (auto) 0.9 % (0.0-7.0); Hematocrit 28.9 % (36.0-46.0); Hemoglobin 9.4 g/dL (12.2-16.2); Lymphocytes # (auto) 2.1 10 ^3/uL (0.4-5.4); Lymphocytes % (auto) 23.9 % (10.0-50.0); Mean Corpuscular Hgb Conc. 32.5 g/dL (32.0-36.0); Monocytes # (auto) 0.7 10 ^3/uL (0-1.3); Monocytes % (auto) 7.8 % (0.0-12.0); Neutrophils # (auto) 5.7 10 ^3/uL (1.6-8.6); Red Blood Cells 3.37 10^6/uL (4.0-5.20); Red Cell Distribution Width 19.6 % (11.8-14.3); White Blood Cell 8.7 10^3/uL (4.4-10.8)
[2021-12-01 04:12] LABS: Calcium 7.4 mg/dL (8.5-10.1); Potassium 3.5 mmol/L (3.5-5.1)
[2021-12-01 04:15] LABS: Albumin 2.8 g/dL (3.4-5.0); BUN/Creatinine Ratio 9.5
[2021-12-01 04:26] LABS: Bilirubin, Total 0.4 mg/dL (0.2-1.0); Total Protein 5.4 g/dL (6.4-8.2)
[2021-12-01] MEDS: PANTOPRAZOLE 40 MG/10 ML VIAL INJ IV SCH (08:25)
[2021-12-01] MEDS ORDERED: INSULIN LANTUS (GLARGINE) 1 /0.01ml (100units/ml) SC SCH (10:00)
[2021-12-01 11:07] LABS: Magnesium 1.5 mg/dL (1.6-2.6); Phosphorus 1.4 mg/dL (2.5-4.90)
[2021-12-01] MEDS: MAGNESIUM SULFATE 1GM/100ML 100 ML IV SCH ×2 (12:27→12:55)
[2021-12-01 12:56] LABS: BUN/Creatinine Ratio 4.2; Calcium 7.7 mg/dL (8.5-10.1); Potassium 3.4 mmol/L (3.5-5.1)
[2021-12-01] MEDS ORDERED: SODIUM PHOSPHATES 40 MEQ in D5W 5% 250 ML IV ONE (13:00)
[2021-12-01] MEDS ORDERED: POTASSIUM CHL 20 Meq TABLET PO ONE (14:45)
[2021-12-01] MEDS: SODIUM CHLORIDE 0.9% 1,000 ML IV SCH (14:45)
[2021-12-01] MEDS ORDERED: DEXTROSE (50%) 50ML SYRG IV PRN (14:45)
[2021-12-01] MEDS: InsuLIN REG 1unit/0.01ml Soln (100units/ml) SC SCH ×2 (16:49→22:00)
[2021-12-01] MEDS: INSULIN LANTUS (GLARGINE) 1 /0.01ml (100units/ml) SC SCH (22:59)
[2021-12-02] MEDS: SODIUM CHLORIDE 0.9% 1,000 ML IV SCH ×2 (00:43→12:00)
[2021-12-02 05:00] VITALS: BP 111/69
[2021-12-02 05:52] LABS: Calcium 7.5 mg/dL (8.5-10.1); Magnesium 1.5 mg/dL (1.6-2.6); Potassium 3.3 mmol/L (3.5-5.1)
[2021-12-02] MEDS: ACCU-CHEK COMFORT CURVE STRIP VI SCH ×4 (06:09→21:59)
[2021-12-02] MEDS: InsuLIN REG 1unit/0.01ml Soln (100units/ml) SC SCH ×4 (06:09→22:00)
[2021-12-02 09:00] VITALS: BP 110/69
[2021-12-02] MEDS: PANTOPRAZOLE 40 MG/10 ML VIAL INJ IV SCH (09:46)
[2021-12-02] MEDS: INSULIN LANTUS (GLARGINE) 1 /0.01ml (100units/ml) SC SCH ×2 (09:52→21:59)
[2021-12-02 13:00] VITALS: BP 141/69
[2021-12-02 17:00] VITALS: BP 125/74
[2021-12-02 23:35] VITALS: BP 119/64
[2021-12-03 05:23] VITALS: BP 121/62
[2021-12-03] MEDS: INSULIN LISPRO (HUMAN) 100 UNITS/ML ML SC SCH ×2 (06:48→12:45)
[2021-12-03] MEDS: ACCU-CHEK COMFORT CURVE STRIP VI SCH ×3 (06:49→16:59)
[2021-12-03] MEDS: InsuLIN REG 1unit/0.01ml Soln (100units/ml) SC SCH ×3 (06:49→17:30)
[2021-12-03 09:00] VITALS: BP 135/81
[2021-12-03] MEDS: PANTOPRAZOLE 40 MG/10 ML VIAL INJ IV SCH (09:56)
[2021-12-03] MEDS: INSULIN LANTUS (GLARGINE) 1 /0.01ml (100units/ml) SC SCH (09:59)
[2021-12-03 12:28] VITALS: BP 142/70
[2021-12-03 16:58] VITALS: BP 142/70
[2021-12-03] MEDS ORDERED: INSULIN LISPRO (HUMAN) 100 UNITS/ML ML SC SCH (17:00)
[2021-12-03 17:15] VITALS: BP 130/80
== END 2021-12-03 17:50 | disposition home or self-care (01) | DRG 420 ==
LOC: EDBD 16:49 → ER 16:49 → TELE 22:45 → ICU WEST 11-30 08:49 → WEST WING 12-01 17:54
PROVIDERS: ADMIT Nurse Practitioner; ATTEND Student in an Organized Health Care Education/Training Program
PROC: 05HB33Z Insertion of Infusion Device into Right Basilic Vein, Percutaneous Approach (ICD-10-PCS; principal; 2021-11-30)
PROC: B54MZZA Ultrasonography of Right Upper Extremity Veins, Guidance (ICD-10-PCS; 2021-11-30)
DX: E11.10 Type 2 diabetes mellitus with ketoacidosis without coma (principal); G93.41 Metabolic encephalopathy; N17.9 Acute kidney failure, unspecified; R16.0 Hepatomegaly, not elsewhere classified; E86.0 Dehydration; I10 Essential (primary) hypertension; F10.10 Alcohol abuse, uncomplicated; F31.9 Bipolar disorder, unspecified; R74.8 Abnormal levels of other serum enzymes; F17.210 Nicotine dependence, cigarettes, uncomplicated; Z91.14 Patient's other noncompliance with medication regimen; Z79.4 Long term (current) use of insulin; Z83.3 Family history of diabetes mellitus; Z90.49 Acquired absence of other specified parts of digestive tract; Z20.822 Contact with and (suspected) exposure to COVID-19
CPT/HCPCS: 36415; 36600; 71045; 74176; 80048; 80053; 80307; 81001; 81025; 82010; 82805; 82962; 83605; 83735; 83930; 84100; 84484; 85025; 87081; 93005; 96361; 96365; 96372; 96375; 99291; C9113; G0378; J1815; J2405; J7060